=== PATIENT | female | born 1965 | race Caucasian/White ===

== ENCOUNTER 2020-12-19 16:33 | Emergency (ER) | payer BC, SELFPAY ==
--- NOTE | ~2020-12-19 | CT_ITS ---
EXAMINATION: CT abdomen pelvis w con DATE: 12/19/2020 20:08 INDICATION: Left lower quadrant pain TECHNIQUE: Computed tomography (CT) of the abdomen and pelvis was performed with 100 cc Omnipaque 350 intravenous contrast. The dose-length product was 274.02 mGy-cm. Automated exposure control and iter ative reconstruction technique were employed. COMPARISON: CT dated 10/21/2018. FINDINGS: Lung bases unremarkable. No significant pleural or pericardial effusion. Heart size is norm al. No significant vascular abnormality. No lymphadenopathy. The liver, spleen, pancreas, adrenal glands and kidneys are unremarkable no abnormal pelvic masses or fluid collections. There is surgical anastomosis of the small bowel in the right abdomen. Gallbladde r is present. Mildly elevated left diaphragm. No free air or free fluid. No evidence for diverticulit is. Mild lumbar spondylosis. There is deformity of the pelvis bilaterally, likely related to remote t rauma. IMPRESSION: 1. No acute abdominal abnormality. Reviewed, dictated and finalized at location A. GRADER
[2020-12-19 17:14] VITALS: BP 110/88; PULSE 78; RESP 18; TEMP 35.8; O2SAT 98
[2020-12-19 17:28] LABS: Basophils Percent Auto 0.4 % (0.2-1.2); Eosinophils Absolute Auto 0.1 K/mm3 (0-0.3); Eosinophils Percent Auto 1.1 % (0-4.4); Hematocrit 42.1 % (37.0-47.0); Hemoglobin 14.2 g/dL (12.0-15.0); Immature Granulocyte Absolute 0.02 K/mm3 (0.00-0.031); Immature Granulocyte Percent A 0.3 % (0-0.5); Lymphocytes Percent Auto 34.3 % (18.3-44.2); Mean Corpuscular HGB Conc 33.7 g/dl (32-36); Mean Corpuscular Hemoglobin 29.5 pg (26-34); Mean Corpuscular Volume 87.3 fl (80-100); Mean Platelet Volume 10.7 fl (7.4-10.4); Monocytes Absolute Auto 0.4 K/mm3 (0.1-0.6); Monocytes Percent Auto 5.1 % (2.6-8.5); Neutrophils Absolute Auto 4.1 K/mm3 (1.3-6.7); Neutrophils Percent Auto 58.8 % (45.5-73.1); Platelet Count Result 245 k/mm3 (150-375); Red Blood Count 4.82 M/mm3 (4.2-5.4); Red Cell Distribution Width 12.9 % (11.5-14.5)
[2020-12-19 17:35] LABS: Add Urine Microscopic? YES; Appearance Urine Clear (Clear); Bacteria Urine Trace /hpf; Bilirubin Urine Negative (Negative); Blood Urine 2+ (Negative); Color Urine Yellow (Yellow); Glucose Urine UA Negative (Negative); Ketones Urine Negative (Negative); Leukocyte Esterase Ur Negative LEU/UL (Negative); Mucus Urine Moderate /lpf; Nitrate Urine Negative (Negative); Protein Urine Negative (Negative); Specific Grav Ur 1.026 (1.001-1.035); Squamous Epithelial Cell Urine Many /hpf (Few); Urobilinogen Urine Negative mg/dL (<2.0)
[2020-12-19 17:41] LABS: Alanine Aminotransferase 17 U/L (4-35); Albumin Level 4.5 g/dL (3.5-5.1); Alkaline Phosphatase 79 U/L (38-126); Anion Gap 5 mmol/L (8-16); Aspartate Amino Transferase 26 U/L (14-36); Bilirubin,Total 0.4 mg/dL (0.2-1.3); Blood Urea Nitrogen 17 mg/dL (7-17); Calcium 9.8 mg/dL (8.4-10.2); Carbon Dioxide 31 mmol/L (22-30); Chloride 103 mmol/L (98-107); Estimated CRCL calculation 62 ml/min; Estimated Glomerular Filt Rate > 60; Glucose 107 mg/dL (65-105); Lipase 44 U/L (23-300); Potassium 4.2 mmol/L (3.4-5.0); Sodium 139 mmol/L (137-145)
--- NOTE | 2020-12-19 19:23 | ED.ABDPAIN ---
HPI - Abdominal Pain General Chief Complaint: Abdominal Pain Stated Complaint: abd pain Time Seen by Provider: 12/19/20 19:14 Source: patient Mode of arrival: ambulatory Limitations: no limitations History of Present Illness HPI narrative: Patient is a 54-year-old female complaining of left lower quadrant pain radiating to her whole abdomen, 5 out of 10, dull, accompanied by nausea started 2 days ago. Patient denies any chest pain, shortness of breath, vomiting, diarrhea, fever, chills or urinary symptoms. Related Data Allergies Allergy/AdvReac Type Severity Reaction Status Date / Time Rajxaol-Isi-Phm Reductase Allergy Elevated CK Verified 12/19/20 17:17 Inhibitor Review of Systems Review of Systems: All systems reviewed & are unremarkable except as noted in HPI and below Constitutional: Constitutional: Denies body ache(s), Denies chills, Denies excessive sweating, Denies fatigue, Denies fever(s), Denies headache(s), Denies lethargy, Denies malaise, Denies weakness and Denies weight loss Eyes: Eyes: Denies blurry vision, Denies change in vision and Denies loss of vision ENT: Denies dizziness, Denies ear discharge, Denies headache(s), Denies lip swelling, Denies epistaxis, Denies nasal congestion, Denies neck pain, Denies throat swelling and Denies tongue swelling Cardiovascular: Cardiovascular: Denies chest pain, Denies chest pain at rest, Denies chest pain with activity, Denies diaphoresis, Denies rapid heart rate, Denies edema, Denies irregular heart rhythm, Denies lightheadedness, Denies palpitations, Denies dyspnea and Denies dyspnea on exertion Respiratory: Respiratory: Denies chest congestion, Denies cough, Denies hemoptysis, Denies dyspnea and Denies dyspnea on exertion Gastrointestinal: Gastrointestinal: Denies melena, Denies hematochezia, Denies diarrhea, Denies vomiting and Denies hematemesis Musculoskeletal: Musculoskeletal: Denies abnormal gait, Denies deformity, Denies joint swelling, Denies limited range of motion, Denies neck pain and Denies numbness Neurologic: Denies Abnormal speech present, Denies abnormal gait, Denies confusion, Denies dizziness, Denies headache(s), Denies focal weakness, Denies loss of vision, Denies numbness, Denies Other visual disturbances, Denies Sensory deficit (Neuro) and Denies weakness Psychiatric: Psychiatric: Denies confusion, Denies depression, Denies auditory hallucinations, Denies homicidal ideation and Denies suicidal ideation Endocrine: Endocrine: Denies cold intolerance, Denies excessive sweating, Denies fatigue, Denies heat intolerance and Denies palpitations Hematologic/Lymphatic: Hematologic/Lymphatic: Denies easy bleeding and Denies easy bruising Allergic/Immunologic: Allergic/Immunologic: Denies lip swelling, Denies throat swelling and Denies tongue swelling PMFSH Past Medical History Medical History BMI 24.0-24.9, adult Tobacco abuse Family History Family History Father Cancer Mother Borderline hyperlipidemia Hypertension Sibling Fibromyalgia Cerebral palsy Other Family history of lung cancer Social History Social History (Updated 12/19/20 @ 13:59 by Ely Loya [facility]) Smoking packs per day: 0.5 Smoking cigarettes per day: 10.0 Years smoked: 25 Smoking pack-years: 12.50 Smoking status: Current every day smoker Tobacco type: cigarettes Alcohol intake: current Substance use: never Substance use type: does not use Additional occupation/education comments: bank boss Gender identity (if verbalized by the patient): Female Exam Const: General: cooperative, healthy appearing, comfortable, no acute distress, well developed, alert and awake; No confusion Orientation/consciousness: oriented to person, oriented to place, oriented to time, patient oriented x3 and No confusion Limitations: n
[2020-12-19] MEDS: SODIUM CHLORIDE 0.9% IV 1,000 ML 999 ML IV CONT (19:42)
[2020-12-19 20:46] VITALS: BP 134/86; PULSE 81; RESP 16; TEMP 36.8; O2SAT 97
== END 2020-12-19 20:47 | disposition home or self-care (01) ==
PROVIDERS: Emergency Medicine; Emergency Provider Emergency Medicine; PCP Nurse Practitioner Family
DX: N30.01 Acute cystitis with hematuria (principal); F17.210 Nicotine dependence, cigarettes, uncomplicated
CPT/HCPCS: 36415; 74177; 80053; 81001; 83690; 85025; 96360; 99284; J7030; Q9967

== ENCOUNTER 2021-05-03 08:49 | Inpatient (IN) | payer BC, SELFPAY ==
--- NOTE | ~2021-05-03 | CT_ITS ---
EXAMINATION: CT orbit BI w con DATE: 05/03/2021 10:34 INDICATION: Orbital cellulitis, left eye swelling TECHNIQUE: Computed tomography (CT) of the facial bones and maxillofacial region was performed 75 cc of Omnipaque 350 intravenous contrast. The dose-length product (DLP) was 188.43 mGy-cm. Automated exp osure control and iterative reconstruction technique were employed. COMPARISON: None. FINDINGS: There is left periorbital and preseptal soft tissue swelling. No abscess is identified. The globes are intact. No acute abnormality of the facial bones is identified. IMPRESSION: 1. Left periorbital cellulitis without abscess. Reviewed, dictated and finalized at location A.
[2021-05-03 09:01] VITALS: BP 163/90; PULSE 80; RESP 14; TEMP 36.5; O2SAT 99
[2021-05-03] MEDS: HYDROcodone/acetaminophen (*CRX) 5-325 MG TABLET 1 TAB PO ×2 (09:48→16:25)
[2021-05-03 10:09] LABS: Anion Gap 7 mmol/L (8-16); Blood Urea Nitrogen 11 mg/dL (7-17); Calcium 9.4 mg/dL (8.4-10.2); Carbon Dioxide 29 mmol/L (22-30); Chloride 104 mmol/L (98-107); Estimated CRCL calculation 61 ml/min; Estimated Glomerular Filt Rate > 60; Glucose 112 mg/dL (65-105); Potassium 4.1 mmol/L (3.4-5.0); Sodium 140 mmol/L (137-145)
[2021-05-03 10:29] LABS: Basophils Absolute Auto 0.1 K/mm3 (0.0-0.1); Basophils Percent Auto 0.8 % (0.2-1.2); Eosinophils Percent Auto 0.5 % (0-4.4); Hematocrit 43.8 % (37.0-47.0); Hemoglobin 14.4 g/dL (12.0-15.0); Immature Granulocyte Absolute 0.03 K/mm3 (0.00-0.031); Immature Granulocyte Percent A 0.4 % (0-0.5); Lymphocytes Absolute Auto 1.66 K/mm3 (0.9-3.2); Mean Corpuscular HGB Conc 32.9 g/dl (32-36); Mean Corpuscular Hemoglobin 29.5 pg (26-34); Mean Corpuscular Volume 89.8 fl (80-100); Mean Platelet Volume 11.2 fl (7.4-10.4); Monocytes Absolute Auto 0.5 K/mm3 (0.1-0.6); Monocytes Percent Auto 5.9 % (2.6-8.5); Neutrophils Absolute Auto 5.6 K/mm3 (1.3-6.7); Neutrophils Percent Auto 71.4 % (45.5-73.1); Platelet Count Result 248 k/mm3 (150-375); Red Blood Count 4.88 M/mm3 (4.2-5.4); Red Cell Distribution Width 12.7 % (11.5-14.5); White Blood Count 7.9 K/mm3 (4.5-10.0)
--- NOTE | 2021-05-03 11:48 | ED.GENADULT ---
HPI - General Adult General Chief complaint: Eye Problems Stated complaint: swollen left eye Time Seen by Provider: 05/03/21 08:53 Source: patient Mode of arrival: ambulatory Limitations: no limitations History of Present Illness HPI narrative: 55-year-old with a history of hyperlipidemia, GERD here with complaints of left eye pain and swelling. Patient states that she is seen in urgent care was given oral antibiotic and eyedrops. However since this morning there is increasing swelling. She denies any fever or chills. Able to see out of the eye clearly without any problem. Onset (ago): day(s) (2) Location: eyes (Left) Severity: moderate Quality: aching Pain Consistency: constant Relieving factors: none Exacerbating factors: none Associated symptoms: denies other symptoms Related Data Home Medications Medication Instructions Recorded Confirmed sucralfate 1 gram tablet 1 g PO Q6H tablet 02/12/21 05/01/21 Allergies Allergy/AdvReac Type Severity Reaction Status Date / Time Essafdj-Fqo-Egi Reductase Allergy Elevated CK Verified 05/01/21 10:26 Inhibitor Review of Systems Review of Systems: All systems reviewed & are unremarkable except as noted in HPI and below Constitutional: Constitutional: Reports no additional constitutional complaints Eyes: Eyes: Reports as per HPI Cardiovascular: Cardiovascular: Reports no additional cardiovascular complaints Respiratory: Respiratory: Reports no additional respiratory complaints Gastrointestinal: Gastrointestinal: Reports no additional gastrointestinal complaints Musculoskeletal: Musculoskeletal: Reports no additional musculoskeletal complaints Integumentary/Breasts: Skin/Breast: Reports as per HPI Neurologic: Reports system reviewed and no additional complaints, except as documented [facility] Past Medical History Medical History Abdominal pain BMI 24.0-24.9, adult BMI 24.0-24.9, adult COVID-19 Stomach cramps Tobacco abuse Surgical History Surgical History H/O: hysterectomy Family History Family History Father Cancer Mother Borderline hyperlipidemia Hypertension Sibling Fibromyalgia Cerebral palsy Other Family history of lung cancer Social History Social History Smoking packs per day: 0.5 Smoking cigarettes per day: 10.0 Years smoked: 25 Smoking pack-years: 12.50 Tobacco type: cigarettes Second hand tobacco smoke exposure: No Alcohol intake: current Substance use: never Substance use type: does not use 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 HEAD: Normocephalic, atraumatic. EYES: PERRLA and EOMI.Left EyeLif is swollen is able to open the eye Conjunctiva is tania , no Drainage. . NECK: Supple. CHEST: Clear to auscultation. No respiratory distress. HEART: Regular rate and rhythm. No murmur heard. Normal peripheral pulses. ABDOMEN: Soft, nontender, nondistended, normal active bowel sounds. EXTREMITIES: Normal range of motion. No edema. SKIN: Warm, dry, no rash. NEURO: No focal deficits. Alert and oriented x3. PSYCH: Normal mood and affect. Course Course Emergency Course: Inform patient about her lab work, and CT findings. We will admit her to hospital for IV antibiotics.Pt agreed. Vital Signs Vital signs: Vital Signs Temperature 36.5 C 05/03/21 09:01 Pulse Rate 80 05/03/21 09:01 Respiratory Rate 14 05/03/21 09:01 Blood Pressure 163/90 H 05/03/21 09:01 Pulse Oximetry 99 05/03/21 09:01 Temperature 36.5 C 05/03/21 09:01 Pulse Rate 80 05/03/21 09:01 Respiratory Rate 14 05/03/21 0
[2021-05-03 12:05] VITALS: BP 151/84; PULSE 84; RESP 16; O2SAT 97
--- NOTE | 2021-05-03 13:00 | ADMGEN ---
This patient, Yanet Stevens, was admitted to Medical Room 247-. Patient/family oriented to hospital policies and general routines including ID bracelet, bed and alarms, visiting hours, pain management, procedures, bathroom and other care routines, personal items, smoking policy, room service/diet, and visiting hours. Information on how to activate the Rapid Response Team has been discussed. Patient/Family are encouraged to report perceived risks to care and to ask questions if they do not understand what they are told or what they should do.
[2021-05-03 14:00] VITALS: BP 145/75; PULSE 70; RESP 18; TEMP 36.5; O2SAT 100
[2021-05-03] MEDS: SODIUM CHLORIDE 0.9% IV 1,000 ML 125 ML IV CONT ×2 (15:20→22:02)
--- NOTE | 2021-05-03 15:33 | PM.IMHP ---
H&P: HPI History of Present Illness Date/Time: 05/03/21 15:33 this is a 55-year-old female patient who stated that she felt a discomfort in her left eye this past Wednesday. She said that she rubbed her eye and felt that maybe something scratched her eye. Her eye feel irritated as if there was something in her eye. She does not wear contacts. The left eye continue to get worse for the next 2 days. So on she went to her primary care doctor's office because her left eye lid was swollen and she had some thick greenish drainage. Patient was given eye drops but were difficult to use because they were burning her I and she needed to instill it every 4 hours. She was doing cold soaks the left eye. The patient was also placed on Augmentin be sides the bleth 10. The patient took Motrin at home and help some. She was doing cold soaks as well. Orbit CT was read as left periorbital cellulitis without abscess. The patient was started on Ancef for cellulitis and vancomycin was added for periorbital cellulitis. The patient stated she was given [place] in the emergency room and that seemed to help the discomfort. The patient is being admitted to inpatient services on the date of service of 05/03/2021 Chief Complaint: Periorbital cellulitis left eye Review of Systems Review of Systems: All systems reviewed & are unremarkable except as noted in HPI and below Constitutional: Constitutional: Reports as per HPI and Reports no additional constitutional complaints Eyes: Eyes: Reports as per HPI and Reports no additional eye complaints ENT: Reports system reviewed and no additional complaints, except as documented and Reports Normal hearing present Cardiovascular: Cardiovascular: Reports no additional cardiovascular complaints Respiratory: Respiratory: Reports no additional respiratory complaints and Reports no additional respiratory complaints Gastrointestinal: Gastrointestinal: Reports as per HPI and Reports no additional gastrointestinal complaints Musculoskeletal: Musculoskeletal: Reports no additional musculoskeletal complaints Integumentary/Breasts: Skin/Breast: Reports system reviewed and no additional complaints, except as docu and Reports as per HPI Neurologic: Reports system reviewed and no additional complaints, except as documented, Reports as per HPI and Reports Normal hearing present Psychiatric: Psychiatric: Reports no additional psychiatric complaints and Reports as per HPI Endocrine: Endocrine: Reports no additional endocrine complaints Hematologic/Lymphatic: Hematologic/Lymphatic: Reports no additional hematologic/lymphatic complaints Allergic/Immunologic: Allergic/Immunologic: Reports no additional allergic/immunologic complaints PMFSH Past Medical History Medical History (Updated 05/03/21 @ 16:08 by Yanet Boyce NP) Abdominal pain Anxiety BMI 24.0-24.9, adult BMI 24.0-24.9, adult Chronic GERD COVID-19 Epigastric abdominal pain Epigastric pain Eustachian tube disorder GERD (gastroesophageal reflux disease) Routine gynecological examination Stomach cramps Tobacco abuse Surgical History Surgical History (Updated 05/03/21 @ 15:55 by Yanet Boyce NP) H/O shoulder surgery H/O: hysterectomy left Family History Family History Father Cancer Mother Borderline hyperlipidemia Hypertension Sibling Fibromyalgia Cerebral palsy Son Genetic disorder Other Family history of lung cancer Social History Social History (Updated 05/03/21 @ 15:57 by Yanet Boyce NP) Social History: The patient lives with her his durable power of disability attorney for healthcare. The patient is a full code. The patient continues to smoke half a pack a cigarettes a day. She had 2 children but 1 son from a rare genetic disorder. Patient occasionally uses alcohol on weekends. She does not use any alcohol marijuana or illicit d
[2021-05-03 18:00] VITALS: BP 100/68; PULSE 69; RESP 18; TEMP 36.8; O2SAT 97
[2021-05-03 20:43] VITALS: BP 117/78; PULSE 79; RESP 18; TEMP 36.4; O2SAT 96
[2021-05-03] MEDS: POLYMYXIN/TRIMETHOPRIM OPHTH 10 ML DROPS 1 DROP EACH EYE (22:03)
[2021-05-04] VITALS: BP 139/87; PULSE 89; RESP 14; TEMP 36.6; O2SAT 93
[2021-05-04 05:26] LABS: Basophils Percent Auto 0.7 % (0.2-1.2); Eosinophils Absolute Auto 0.1 K/mm3 (0-0.3); Hematocrit 40.2 % (37.0-47.0); Hemoglobin 12.8 g/dL (12.0-15.0); Immature Granulocyte Absolute 0.03 K/mm3 (0.00-0.031); Immature Granulocyte Percent A 0.5 % (0-0.5); Lymphocytes Absolute Auto 2.04 K/mm3 (0.9-3.2); Lymphocytes Percent Auto 36.4 % (18.3-44.2); Mean Corpuscular HGB Conc 31.8 g/dl (32-36); Mean Corpuscular Hemoglobin 29.6 pg (26-34); Mean Corpuscular Volume 92.8 fl (80-100); Mean Platelet Volume 11.1 fl (7.4-10.4); Monocytes Absolute Auto 0.4 K/mm3 (0.1-0.6); Monocytes Percent Auto 7.3 % (2.6-8.5); Neutrophils Percent Auto 53.1 % (45.5-73.1); Platelet Count Result 219 k/mm3 (150-375); Red Blood Count 4.33 M/mm3 (4.2-5.4); Red Cell Distribution Width 12.7 % (11.5-14.5); White Blood Count 5.6 K/mm3 (4.5-10.0)
[2021-05-04] MEDS: SODIUM CHLORIDE 0.9% IV 1,000 ML 125 ML IV CONT (05:31)
[2021-05-04 05:32] VITALS: BP 124/72; PULSE 65; RESP 16; TEMP 36.4; O2SAT 92
[2021-05-04 05:38] LABS: Anion Gap 5 mmol/L (8-16); Blood Urea Nitrogen 12 mg/dL (7-17); Calcium 8.8 mg/dL (8.4-10.2); Carbon Dioxide 30 mmol/L (22-30); Chloride 106 mmol/L (98-107); Estimated CRCL calculation 54 ml/min; Estimated Glomerular Filt Rate > 60; Glucose 93 mg/dL (65-105); Potassium 4.6 mmol/L (3.4-5.0); Sodium 141 mmol/L (137-145)
[2021-05-04] MEDS: ENOXAPARIN 40 MG/0.4 ML SYRINGE SUB-Q (09:17)
[2021-05-04] MEDS: POLYMYXIN/TRIMETHOPRIM OPHTH 10 ML DROPS 1 DROP EACH EYE ×2 (09:17→20:11)
[2021-05-04] MEDS: ACETAMINOPHEN 325 MG TABLET 650 MG PO (09:27)
--- NOTE | 2021-05-04 10:37 | PM.IMPN ---
Progress Note: A&P Assessment and Plan (1) Periorbital cellulitis of left eye: Code(s): L03.213 - Periorbital cellulitis Status: Acute Assessment and Plan: Swelling and redness noted to left eye Complaints of blurred vision CT findings Left periorbital cellulitis without abscess. Cefazolin 1gm Q8hr Vanc 1000 Q18 Continue with Poly/trim 1gtt each eye. Lambert 1tab PO Q4hr, Torodol 30mg IV once for pain (2) Anxiety: Code(s): F41.9 - Anxiety disorder, unspecified Status: Chronic Assessment and Plan: Continue with citalopram 10mg PO HS (3) Hyperlipidemia: Qualifiers: Hyperlipidemia type: mixed hyperlipidemia Qualified Code(s): E78.2 - Mixed hyperlipidemia Code(s): E78.5 - Hyperlipidemia, unspecified Status: Acute Assessment and Plan: Continue with Zetia 10mg PO HS (4) Tobacco abuse: Code(s): Z72.0 - Tobacco use Status: Acute Assessment and Plan: Smoke cessation education Smoking patch ordered PRN (5) Chronic GERD: Code(s): K21.9 - Gastro-esophageal reflux disease without esophagitis Status: Chronic Assessment and Plan: Continue with crafate 1gm PO Q6hr PRN Time Spent With Patient Time with patient: 25 - 35 minutes Subjective Date/time seen: 05/04/21 0940 Interval history: Patient is a 55 year old female with a past medical history of COVID, GERD, Allergies, and tobacco use that presented to the ED with complaints of eye pain and swelling. Patient stated this started on Wednesday of last week when she noticed pain, then on she stated that the swelling started. And on her eye was huge. She stated that she went to her primary that gave her some eye drops, and amoxicillin. Which she said that she did not get much relief from that and she was noticing some green drainage. She said today that she just feels really stuffy in her head and that her eye is really hurting. She stated that there is drainage still but it is clear and sticky and that she is having drainage from the other eye as well. She did try some motrin at home which she stated she was able to get some relief. Upon examination she is severely swollen and can barely open her eye. She also stated that she is having some blurred vision in the eye to and she can see better if she covers that eye. She also stated that she has really bad allergies. She denies any other symptoms, chest pain, shortness of breath, nausea, vomiting, abdominal pain, numbness tingling, loss of appetite, dizziness, lightheadedness, fall or syncope. Review of Systems Review of Systems: All systems reviewed & are unremarkable except as noted in HPI and below Exam Const: General: cooperative, healthy appearing, no acute distress, well developed, alert and awake Nutritional Appearance: well nourished Orientation/consciousness: patient oriented x3 Limitations: no limitations HENMT: Head: normal to inspection Ears: hearing grossly normal bilaterally General nose exam: Normal external nose present Mouth: Yes Normal oral and palatal mucosa present, Yes lip normal and Yes tongue normal Teeth and gingiva: abnormal tooth and associated gingiva and poor dentition Eyes: General: dysmorphic (left eye is swollen shut) Alignment and Position: alignment normal Periorbital: periorbital findings abnormal left periorbital swelling, periorbital tenderness and periorbital erythema Eyelids: eyelid abnormality left upper eyelid erythema, swelling and tenderness and left lower eyelid erythema, swelling and tenderness Pupils: Equal, round and reactive pupils present EOM: EOMs intact bilaterally Neck: Neck: normal visual inspection, full ROM, trachea midline and supple Chest: Chest palpation & inspection: normal inspection of the chest Resp: Effort & Inspection: normal respiratory effort and able to speak in complete sentences Auscult
[2021-05-04] MEDS: KETOROLAC 30 MG/ML VIAL (*BKC) IV PUSH ×2 (12:23→18:33)
[2021-05-04] MEDS: LORATADINE 10 MG TABLET PO (12:25)
[2021-05-04 14:00] VITALS: BP 112/73; PULSE 65; RESP 18; TEMP 36.1; O2SAT 100
[2021-05-04] MEDS: EZETIMIBE 10 MG TABLET PO (20:11)
[2021-05-04] MEDS: CITALOPRAM HYDROBROMIDE 10 MG TABLET PO (20:11)
[2021-05-04 22:00] VITALS: BP 117/71; PULSE 68; RESP 18; TEMP 36.1; O2SAT 97
[2021-05-05] VITALS: BP 120/68; PULSE 62; RESP 18; TEMP 36.4; O2SAT 97
[2021-05-05 04:00] VITALS: BP 125/69; PULSE 62; RESP 20; TEMP 36.1; O2SAT 98
[2021-05-05 05:28] LABS: Hematocrit 37.9 % (37.0-47.0); Hemoglobin 12.8 g/dL (12.0-15.0); Mean Corpuscular HGB Conc 33.8 g/dl (32-36); Mean Corpuscular Hemoglobin 29.8 pg (26-34); Mean Corpuscular Volume 88.1 fl (80-100); Platelet Count Result 229 k/mm3 (150-375); Red Cell Distribution Width 12.2 % (11.5-14.5)
[2021-05-05 05:49] LABS: Alanine Aminotransferase 13 U/L (4-35); Albumin Level 3.8 g/dL (3.5-5.1); Alkaline Phosphatase 69 U/L (38-126); Anion Gap 5 mmol/L (8-16); Aspartate Amino Transferase 28 U/L (14-36); Bilirubin,Total 0.2 mg/dL (0.2-1.3); Blood Urea Nitrogen 14 mg/dL (7-17); Calcium 9.2 mg/dL (8.4-10.2); Carbon Dioxide 31 mmol/L (22-30); Chloride 104 mmol/L (98-107); Estimated CRCL calculation 54 ml/min; Estimated Glomerular Filt Rate > 60; Glucose 98 mg/dL (65-105); Potassium 4.4 mmol/L (3.4-5.0); Sodium 140 mmol/L (137-145)
[2021-05-05] MEDS: POLYMYXIN/TRIMETHOPRIM OPHTH 10 ML DROPS 1 DROP EACH EYE (08:09)
[2021-05-05] MEDS: LORATADINE 10 MG TABLET PO (08:09)
--- NOTE | 2021-05-05 09:19 | PM.DS ---
DS: Admitting Diagnosis Admitting Diagnosis Admitting Diagnosis: Periorbital cellulitis DS: Discharge Diagnosis Discharge Diagnosis (1) Periorbital cellulitis of left eye: Code(s): L03.213 - Periorbital cellulitis Status: Acute Assessment and Plan: Swelling and redness noted to left eye Complaints of blurred vision CT findings Left periorbital cellulitis without abscess. Cefazolin 1gm Q8hr Vanc 1000 Q18 Continue with Poly/trim 1gtt each eye. [place] 1tab PO Q4hr, Torodol 30mg IV once for pain (2) Anxiety: Code(s): F41.9 - Anxiety disorder, unspecified Status: Chronic Assessment and Plan: Continue with citalopram 10mg PO HS (3) Hyperlipidemia: Qualifiers: Hyperlipidemia type: mixed hyperlipidemia Qualified Code(s): E78.2 - Mixed hyperlipidemia Code(s): E78.5 - Hyperlipidemia, unspecified Status: Acute Assessment and Plan: Continue with Zetia 10mg PO HS (4) Tobacco abuse: Code(s): Z72.0 - Tobacco use Status: Acute Assessment and Plan: Smoke cessation education Smoking patch ordered PRN (5) Chronic GERD: Code(s): K21.9 - Gastro-esophageal reflux disease without esophagitis Status: Chronic Assessment and Plan: Continue with crafate 1gm PO Q6hr PRN DS: Summary Hospital Course Hospital Course: Patient is a 55 year old female with a past medical history of COVID, GERD, Allergies, and tobacco use that presented to the ED with complaints of eye pain and swelling. Patient stated this started on Wednesday of last week when she noticed pain, then on she stated that the swelling started. And on her eye was huge. She stated that she went to her primary that gave her some eye drops, and amoxicillin. Which she said that she did not get much relief from that and she was noticing some green drainage. Since she has been in the hospital, she has been getting IV antibiotics, and toradol for swelling and pain. Patient did get some narcotics however she stated that the pain was better, but it made her very tired and lethargic. Today the swelling is better and she is able to open her eye. She stated that the pain is minimal and she is not having any blurred or abnormal vision. Patient has denied and still denies any other complaints through this admission. Patient denies chest pain, shortness of breath, abdominal pain, nausea, vomiting, numbness and tingling, dizziness, lightheadedness, or syncope falls. I did instruct patient about call primary about referral to farm technician for further care if this does not get any better. Status at Discharge Functional status at discharge: independent ambulation Overall status at discharge: patient is progressing back to baseline Time Spent with Patient Time attestation: Total time spent providing and/or coordinating discharge services: Time spent: Less than 30 minutes Exam Const: General: cooperative, healthy appearing, comfortable, no acute distress, well developed, alert, awake and Physically active Nutritional Appearance: average body habitus and well nourished Orientation/consciousness: oriented to person, oriented to place, oriented to time and patient oriented x3 Limitations: no limitations HENMT: Head: normal to inspection, No palpable skull fracture present, normocephalic and atraumatic Ears: hearing grossly normal bilaterally and external ears normal General nose exam: Normal external nose present, Normal nares present and No nasal polyps present Mouth: Yes Normal oral and palatal mucosa present, Yes lip normal and Yes tongue normal Teeth and gingiva: abnormal tooth and associated gingiva and poor dentition Eyes: General: dysmorphic (left eye is swollen slightly) Alignment and Position: alignment normal Periorbital: periorbital findings normal and periorbital findings abnormal left periorbital swelling, periorbital tend
[2021-05-05 10:00] VITALS: BP 120/76; PULSE 74; RESP 16; TEMP 36.2; O2SAT 100
== END 2021-05-05 10:59 | disposition home or self-care (01) | DRG 603 ==
LOC: ANHED 12:21 → ANH2MED 16:56
PROVIDERS: Nurse Practitioner; Admitting Provider Family Medicine; Emergency Provider Family Medicine; PCP Family Medicine; Visit Provider Internal Medicine
DX: L03.213 Periorbital cellulitis (principal); F41.9 Anxiety disorder, unspecified; K21.9 Gastro-esophageal reflux disease without esophagitis; E78.2 Mixed hyperlipidemia; F17.210 Nicotine dependence, cigarettes, uncomplicated; Z79.899 Other long term (current) drug therapy; Z86.16 Personal history of COVID-19
CPT/HCPCS: 36415; 70481; 80048; 80053; 85025; 85027; 99285; A9270; J0690; J1650; J1885; J3370; J7030; Q9967

== ENCOUNTER 2022-03-12 09:01 | Outpatient (CLI) | payer BC, SELFPAY ==
--- NOTE | ~2022-03-12 | CT_ITS ---
EXAMINATION: CT abdomen pelvis w con DATE: 03/12/2022 09:40 INDICATION: Mid abdominal pain. TECHNIQUE: Computed tomography (CT) of the abdomen and pelvis was performed with 100 mL Omnipaque 350 intravenous contrast. Automated exposure control and iterative reconstruction technique were employe d. The dose-length product was 337.55 mGy-cm. COMPARISON: CT abdomen and pelvis 12/19/2020 FINDINGS: The visualized portions of the lung bases show minimal atelectasis. No pleural effusion. Th e heart size is normal. No pericardial effusion. There is a 4 mm cyst in the liver. The gallbladder, spleen, pancreas, adrenal glands, and kidneys are normal. There are no dilated loops of bowel. The ap pendix is not visualized. There are changes of hysterectomy and bilateral oophorectomy. There is an a nastomosis in the ileum. There are no pathologically enlarged lymph nodes. There is no free intraperi toneal fluid. There is moderate lumbar spondylosis. IMPRESSION: 1. No etiology for the patient's symptoms. Reviewed, dictated and finalized at location A.
[2022-03-12 10:20] LABS: Basophils Percent Auto 0.7 % (0.2-1.2); Eosinophils Percent Auto 0.5 % (0-4.4); Hematocrit 41.6 % (37.0-47.0); Hemoglobin 13.5 g/dL (12.0-15.0); Immature Granulocyte Absolute 0.03 K/mm3 (0.00-0.031); Immature Granulocyte Percent A 0.5 % (0-0.5); Lymphocytes Absolute Auto 1.86 K/mm3 (0.9-3.2); Lymphocytes Percent Auto 30.5 % (18.3-44.2); Mean Corpuscular HGB Conc 32.5 g/dl (32-36); Mean Corpuscular Hemoglobin 29.5 pg (26-34); Mean Platelet Volume 10.8 fl (7.4-10.4); Monocytes Absolute Auto 0.4 K/mm3 (0.1-0.6); Monocytes Percent Auto 5.7 % (2.6-8.5); Neutrophils Absolute Auto 3.8 K/mm3 (1.3-6.7); Neutrophils Percent Auto 62.1 % (45.5-73.1); Platelet Count Result 264 k/mm3 (150-375); Red Blood Count 4.57 M/mm3 (4.2-5.4); Red Cell Distribution Width 12.9 % (11.5-14.5); White Blood Count 6.1 K/mm3 (4.5-10.0)
[2022-03-12 11:07] LABS: Vitamin D 25 Hydroxy 44.7 ng/mL
[2022-03-12 16:54] LABS: Alanine Aminotransferase 17 U/L (4-35); Alkaline Phosphatase 73 U/L (38-126); Amylase 56 U/L (30-110); Anion Gap 6 mmol/L (8-16); Aspartate Amino Transferase 25 U/L (14-36); Bilirubin,Total 0.5 mg/dL (0.2-1.3); Blood Urea Nitrogen 15 mg/dL (7-17); Calcium 8.7 mg/dL (8.4-10.2); Carbon Dioxide 28 mmol/L (22-30); Chloride 100 mmol/L (98-107); Estimated Glomerular Filt Rate > 60; Glucose 96 mg/dL (65-110); Lipase 36 U/L (23-300); Potassium 4.3 mmol/L (3.4-5.0); Sodium 134 mmol/L (137-145)
== END 2022-03-12 09:02 | disposition home or self-care (01) ==
PROVIDERS: Nurse Practitioner Family; PCP Family Medicine; Visit Provider Nurse Practitioner Family
DX: R10.9 Unspecified abdominal pain (principal); E55.9 Vitamin D deficiency, unspecified; K57.92 Diverticulitis of intestine, part unspecified, without perforation or abscess without bleeding; R10.12 Left upper quadrant pain; R10.31 Right lower quadrant pain; R10.32 Left lower quadrant pain
CPT/HCPCS: 36415; 74177; 80053; 82150; 82306; 83690; 85025; Q9967

== ENCOUNTER → 2022-05-02 10:51 | Outpatient (CLI) | payer BC, SELFPAY ==
--- NOTE | ~2022-05-02 | MM_ITS ---
EXAMINATION: MM screening agus BI w christiana HISTORY: Screening mammogram TECHNIQUE: Craniocaudal and mediolateral oblique 3-D tomosynthesis images were obtained and synthetic 2-D images were generated. CAD analysis was submitted and interpreted. COMPARISON: No prior mammogram is available for comparison at this institution. BREAST PARENCHYMAL COMPOSITION: There are scattered areas of fibroglandular density. FINDINGS: There are 2 circumscribed roughly 6 mm opacities suggestive of lymph nodes in the posterior mid to upper outer left breast with some microcalcifications. Left axillary lymph nodes with some calcifications are noted. Diagnostic left mammogram with magnification views is recommended. Benign appearing lymph node in the posterior outer mid right breast. IMPRESSION: 1. Calcifications within posterior mid to upper outer left lymph nodes and axillary nodes 2. Diagnostic left mammogram is recommended, with ultrasound if required 0 Reviewed, dictated and finalized at location A. IMPRESSION: 1. Calcifications within posterior mid to upper outer left lymph nodes and axil lalo nodes 2. Diagnostic left mammogram is recommended, with ultrasound if required 0
== END ==
PROVIDERS: PCP Nurse Practitioner Family; Visit Provider Nurse Practitioner Family
DX: Z12.31 Encounter for screening mammogram for malignant neoplasm of breast (principal); R92.8 Other abnormal and inconclusive findings on diagnostic imaging of breast
CPT/HCPCS: 77063; 77067

== ENCOUNTER 2022-06-04 00:33 | Day surgery (SDC) | payer BC, SELFPAY ==
[2022-05-22 10:56] VITALS: BMI 24.2
--- NOTE | 2022-06-04 08:26 | WPDANESEPPF ---
Anes - Initial Pre Proc Eval Procedure: Operation Date: 06/04/22 10:00 Proposed Procedures p Esophagogastroduodenoscopy - Gildardo Sarah MD Date/Time: 06/04/22 08:26 Surgeon: Gildardo Sarah MD Pre Op Diagnosis: GERD Patient Data Age: 56 Gender: F Height: 1.68 m Weight: 68 kg Allergies Allergy/AdvReac Type Severity Reaction Status Date / Time ezetimibe [From Zetia] AdvReac muscle Verified 05/22/22 10:54 aches Efrcaru-ILT-MaN Reductase AdvReac Elevated CK Verified 05/22/22 10:54 Inhibitor [Yhlgoun-Dto-Yxh Reductase Inhibitor] Home Medications Medication Instructions Recorded Confirmed Type sucralfate 1 gram tablet 1 g PO Q6H PRN Acid Reflux #90 tabs 12/22/21 05/22/22 Rx citalopram 10 mg tablet 10 mg PO HS #90 tabs 04/13/22 05/22/22 Rx ibuprofen 800 mg tablet 800 mg PO TID PRN pain and swellin 04/14/22 05/22/22 Rx #30 tabs omeprazole 40 mg capsule,delayed 40 mg PO DAILY PRN Indigestion 05/22/22 05/22/22 History release Patient hx anesthesia problems: none Family hx anesthesia problems: none Results Review: All pre-operative results and documents have been reviewed as part of the pre-operative evaluation. [facility] Past Medical History Medical History (Updated 05/04/22 @ 08:13 by Barb Decker NP) Abdominal pain Anxiety BMI 24.0-24.9, adult BMI 24.0-24.9, adult BMI 25.0-25.9,adult Chronic GERD COVID-19 Diverticulitis Epigastric abdominal pain Epigastric pain Eustachian tube disorder GERD (gastroesophageal reflux disease) LLQ pain LUQ pain RLQ abdominal pain Routine gynecological examination Stomach cramps Tobacco abuse Surgical History Surgical History H/O shoulder surgery H/O: hysterectomy left Family History Family History Father Cancer Mother Borderline hyperlipidemia Hypertension Sibling Fibromyalgia Cerebral palsy Son Genetic disorder Other Family history of lung cancer Social History Social History Social History: The patient lives with her his durable power of attorney lawyer for healthcare. The patient is a full code. The patient continues to smoke half a pack a cigarettes a day. She had 2 children but 1 son from a rare genetic disorder. Patient occasionally uses alcohol on weekends. She does not use any alcohol marijuana or illicit drugs. 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 Informed Consent: The patient's anesthetic plan and its attendant risks and benefits were discussed with the patient/family/POA. Questions were solicited and answers provided to the satisfaction of the patient/family/POA.
[2022-06-04 08:42] VITALS: BP 140/91; PULSE 79; RESP 18; TEMP 36.5; O2SAT 98; BMI 23.8
[2022-06-04] MEDS: LACTATED RINGERS 1,000 ML 150 ML IV CONT (08:51)
--- NOTE | 2022-06-04 09:17 | PM.HPGS ---
History of Present Illness History of Present Illness Consent: Risks, benefits, and alternatives have been discussed and questions answered. Patient agrees to proceed with procedure. Chief complaint: GERD Narrative: Yanet Stevens is a 56 year old female Who has been troubled by lower thoracic, upper abdominal discomfort for the past several months. She states that she has pain virtually every day. She tends to notice that when she wakes up. It can occasionally get worse after meal. She has different types of pains in different days. Often it is a bandlike discomfort across her lower thorax. It is uncomfortable often for her to wear a bra because of that discomfort, and it will at times make it feel like it is difficult for her to catch her breath. She also feels very bloated in the upper abdomen. This may get worse as the day goes on. 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 She notices that she gets full easily and has a very difficult time finishing a meal. She is taking sucralfate 4 times a day but not noticing any definite benefit from that. a CT scan of the abdomen done 2 months ago was unremarkable. Review of Systems Review of Systems: All systems reviewed & are unremarkable except as noted in HPI and below PMFSH Past Medical History Medical History Abdominal pain Anxiety BMI 24.0-24.9, adult BMI 24.0-24.9, adult BMI 25.0-25.9,adult Chronic GERD COVID-19 Diverticulitis Epigastric abdominal pain Epigastric pain Eustachian tube disorder GERD (gastroesophageal reflux disease) LLQ pain LUQ pain RLQ abdominal pain Routine gynecological examination Stomach cramps Tobacco abuse Surgical History Surgical History H/O shoulder surgery H/O: hysterectomy left Family History Family History Father Cancer Mother Borderline hyperlipidemia Hypertension Sibling Fibromyalgia Cerebral palsy Son Genetic disorder Other Family history of lung cancer Social History Social History Social History: The patient lives with her his durable power of trade mark attorney for healthcare. The patient is a full code. The patient continues to smoke half a pack a cigarettes a day. She had 2 children but 1 son from a rare genetic disorder. Patient occasionally uses alcohol on weekends. She does not use any alcohol marijuana or illicit drugs. 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 Gender identity (if verbalized by the patient): Female Spiritual care concerns: No Meds Home Medications and Allergies Home Medications Medication Instructions Recorded Confirmed Type sucralfate 1 gram tablet 1 g PO Q6H PRN Acid Reflux #90 tabs 12/22/21 05/22/22 Rx citalopram 10 mg tablet 10 mg PO HS #90 tabs 04/13/22 05/22/22 Rx ibuprofen 800 mg tablet 800 mg PO TID PRN pain and swellin 04/14/22 05/22/22 Rx #30 tabs omeprazole 40 mg capsule,delayed 40 mg PO DAILY PRN Indigestion 05/22/22 05/22/22 History release Allergies Allergy/AdvReac Type Severity Reaction Status Date / Time ezetimibe [From Zetia] AdvReac muscle Verified 05/22/22 10:54 aches Gwnhvry-IKL-CyN Reductase AdvReac Elevated CK Verified 05/22/22 10:54 Inhibitor [Habgutq-Kum-Dmv Reductase Inhibitor] Vital Sign
[2022-06-04 10:10] VITALS: BP 127/74; PULSE 80; RESP 20; O2SAT 99
[2022-06-04 10:20] VITALS: BP 117/84; PULSE 71; RESP 18; O2SAT 100
[2022-06-04 10:30] VITALS: BP 146/76; PULSE 68; RESP 20; O2SAT 100
== END 2022-06-04 10:35 | disposition home or self-care (01) ==
PROVIDERS: PCP Nurse Practitioner Family; Visit Provider Internal Medicine Gastroenterology
PROC: 0DJ08ZZ Inspection of Upper Intestinal Tract, Via Natural or Artificial Opening Endoscopic (ICD-10-PCS; CPT 43235; principal; 2022-06-04 10:00)
DX: K29.70 Gastritis, unspecified, without bleeding (principal); F17.210 Nicotine dependence, cigarettes, uncomplicated; F41.9 Anxiety disorder, unspecified
CPT/HCPCS: 43239; 87081; 88305; J2704; J7120

== ENCOUNTER 2022-08-19 07:57 | Outpatient (CLI) | payer BC, SELFPAY ==
--- NOTE | 2022-09-13 14:17 | WPDSLEEPSTUD ---
Sleep Study Date of Study: 08/19/22 Ordering Provider: Garrett Cuello MD Interpreting Physician: Roselia Nieves MD Sleep Study Type: Split Polysomnogram Height: 1.68 m Weight: 68.039 kg Body Mass Index: 24.2 Neck Circumference (inches): 14 [place]: 13 Reason for Sleep Study Hypersomnia Sleep History Yanet Stevens is a 56-year-old female with Fatigue. She never feels like she gets enough sleep. Others tell her she snores loudly. Her brother and sister both use CPAP. She rarely awakens from sleep feeling short of breath. She occasionally awakens at night with heartburn, belching or coughing. She constantly snores loudly enough that others complain about it she occasionally has trouble sleeping with a cold. She rarely wakes up gasping for breath at night. She rarely has breathing problems at night observed by others. She frequently sweats excessively at night. She does not notice her heart pounding or beating irregularly at night. She frequently falls asleep during the day. She does not fall asleep involuntarily. She does not fall asleep while driving. She does not have loss of muscle tone with strong emotion. She occasionally has daytime difficulties due to excessive sleepiness. She rarely feels paralyzed on waking or falling asleep. She occasionally has vivid dreamlike scenes upon awakening or falling asleep. She does not feel afraid to go to sleep. She occasionally has nightmares. She occasionally remembers her dreams. She constantly has racing thoughts. She occasionally feels sad, depressed or anxious. She rarely has muscular tension. She does not notice parts of her body jerking. She frequently kicks at night and frequently has crawling aching feelings in her legs. She occasionally has leg pain at night. She frequently has morning jaw pain and frequently grinds her teeth during sleep. She occasionally is bothered by pain during the day. She rarely is awakened by pain at night. She occasionally wakes up feeling stiff in the morning with sore achy muscles. She frequently wakes up with pain in the neck and spine. She has Hyperlipidemia, GERD on omeprazole and she takes citalopram for depression. She also has nasal allergies. Normal bedtime is 9:00 p.m. taking an hour to fall asleep waking twice at night to go to the bathroom, toss and turn. It takes her about 1/2 hour to return to sleep. She wakes the morning by noon. on weekends, she goes to bed later, 10:00 p.m. and wakes by 1:00 p.m.. She estimates getting 8 hours of sleep during 13 to 15 hours in bed. She takes naps on weekends. A short nap is not refreshing. She is usually drowsy for 2 hours after waking. She feels better in the afternoon compared to the morning. Habits: Tobacco half pack per day. Caffeine 18 oz of coffee and 1 can of soda per day. No alcohol or recreational drugs. [facility] Past Medical History Medical History Abdominal pain Anxiety BMI 24.0-24.9, adult BMI 24.0-24.9, adult BMI 25.0-25.9,adult Chronic GERD COVID-19 Diverticulitis Epigastric abdominal pain Epigastric pain Eustachian tube disorder GERD (gastroesophageal reflux disease) LLQ pain LUQ pain RLQ abdominal pain Routine gynecological examination Stomach cramps Tobacco abuse Surgical History Surgical History H/O shoulder surgery H/O: hysterectomy left Family History Family History Father Cancer Mother Borderline hyperlipidemia Hypertension Sibling Fibromyalgia Cerebral palsy Son Genetic disorder Other Family history of lung cancer Social History Social History Social History: The patient lives with her his durable power of deputy attorney general for healthcare. The patient is a full code. The
[2022-09-13 15:12] VITALS: BMI 24.2
== END 2022-08-20 05:47 | disposition home or self-care (01) ==
PROVIDERS: PCP Nurse Practitioner Family; Visit Provider Family Medicine
DX: G47.10 Hypersomnia, unspecified (principal); G47.33 Obstructive sleep apnea (adult) (pediatric); G25.81 Restless legs syndrome
CPT/HCPCS: 95810; 95811

== ENCOUNTER 2022-09-25 09:59 | Outpatient (CLI) | payer BC, SELFPAY ==
[2022-09-25 10:54] LABS: Iron 76 ug/dL (37-170)
[2022-09-25 10:56] LABS: Magnesium 2.1 mg/dL (1.6-2.3)
[2022-09-25 11:05] LABS: Percent Iron Saturation 17 % (20-50)
== END 2022-09-25 10:00 | disposition home or self-care (01) ==
LOC: ANHLAB 10:01
PROVIDERS: PCP Family Medicine; Visit Provider Nurse Practitioner Family
DX: G25.81 Restless legs syndrome (principal)
CPT/HCPCS: 36415; 82728; 83540; 83550; 83735

== ENCOUNTER 2023-02-24 07:49 | Outpatient (CLI) | payer BC, SELFPAY | END 2023-02-24 07:50 | disposition home or self-care (01) | LOC: ANHAUDIO 07:50 | PROVIDERS: PCP Family Medicine; Visit Provider Otolaryngology | DX: H65.492 Other chronic nonsuppurative otitis media, left ear (principal); J31.0 Chronic rhinitis; H90.A11 Conductive hearing loss, unilateral, right ear with restricted hearing on the contralateral side; H90.A32 Mixed conductive and sensorineural hearing loss, unilateral, left ear with restricted hearing on the contralateral side | CPT/HCPCS: 92557; 92567 ==

== ENCOUNTER 2023-05-29 07:06 | Outpatient (CLI) | payer BC, SELFPAY ==
[2023-05-29 08:09] LABS: Basophils Absolute Auto 0.1 K/mm3 (0.0-0.1); Eosinophils Absolute Auto 0.1 K/mm3 (0-0.3); Eosinophils Percent Auto 0.9 % (0-4.4); Hematocrit 44.7 % (37.0-47.0); Immature Granulocyte Absolute 0.03 K/mm3 (0.00-0.031); Immature Granulocyte Percent A 0.4 % (0-0.5); Lymphocytes Absolute Auto 2.11 K/mm3 (0.9-3.2); Lymphocytes Percent Auto 30.2 % (18.3-44.2); Mean Corpuscular HGB Conc 33.6 g/dl (32-36); Mean Corpuscular Hemoglobin 29.9 pg (26-34); Mean Platelet Volume 11.4 fl (7.4-10.4); Monocytes Absolute Auto 0.4 K/mm3 (0.1-0.6); Monocytes Percent Auto 5.9 % (2.6-8.5); Neutrophils Absolute Auto 4.3 K/mm3 (1.3-6.7); Neutrophils Percent Auto 61.6 % (45.5-73.1); Platelet Count Result 261 k/mm3 (150-375); Red Blood Count 5.02 M/mm3 (4.2-5.4)
[2023-05-29 08:20] LABS: Alanine Aminotransferase 19 U/L (6-35); Albumin Level 4.3 g/dL (3.5-5.1); Alkaline Phosphatase 79 U/L (38-126); Anion Gap 3 mmol/L (8-16); Aspartate Amino Transferase 23 U/L (14-36); Bilirubin,Total 0.6 mg/dL (0.2-1.3); Blood Urea Nitrogen 19 mg/dL (7-17); Carbon Dioxide 34 mmol/L (22-30); Chloride 104 mmol/L (98-107); Cholesterol 249 mg/dL (0-200); Estimated Glomerular Filt Rate > 60; Glucose 103 mg/dL (65-110); HDL Direct 48 mg/dL; Potassium 4.4 mmol/L (3.4-5.0); Sodium 141 mmol/L (137-145); Triglycerides 110 mg/dL (<150)
[2023-05-29 08:31] LABS: LDL Cholesterol Direct 163 mg/dL
[2023-05-29 09:10] LABS: Iron 124 ug/dL (37-170)
[2023-05-29 09:20] LABS: Percent Iron Saturation 32 % (20-50)
== END 2023-05-29 07:07 | disposition home or self-care (01) ==
PROVIDERS: PCP Family Medicine; Visit Provider Nurse Practitioner Family
DX: E61.1 Iron deficiency (principal); E78.5 Hyperlipidemia, unspecified; Z72.0 Tobacco use; Z13.29 Encounter for screening for other suspected endocrine disorder; E55.9 Vitamin D deficiency, unspecified; G25.81 Restless legs syndrome; G47.33 Obstructive sleep apnea (adult) (pediatric)
CPT/HCPCS: 36415; 80053; 80061; 82306; 82728; 83540; 83550; 84443; 85025

== ENCOUNTER → 2023-07-09 15:30 | Outpatient (CLI) | payer BC, SELFPAY ==
--- NOTE | ~2023-07-09 | MM_ITS ---
EXAMINATION: MM screening [facility] BI w christiana HISTORY: Screening mammogram TECHNIQUE: Craniocaudal and mediolateral oblique 3-D tomosynthesis images were obtained and synthetic 2-D images were generated. CAD analysis was submitted and interpreted. COMPARISON: 05/02/2022, 12/26/2019, 07/04/2019 BREAST PARENCHYMAL COMPOSITION: There are scattered areas of fibroglandular density. FINDINGS: No suspicious mass, calcification, or architectural distortion are identified in either volodymyr ast to suggest malignancy. There has been no suspicious interval change. IMPRESSION: 1. No mammographic evidence of malignancy. 2. Recommend routine screening mammography in one year. BI-RADS Category 1: Negative Reviewed, dictated and finalized at location A.
== END ==
PROVIDERS: PCP Nurse Practitioner Family; Visit Provider Nurse Practitioner Family
DX: Z12.31 Encounter for screening mammogram for malignant neoplasm of breast (principal)
CPT/HCPCS: 77063; 77067

== ENCOUNTER 2024-01-12 01:59 | Day surgery (SDC) | payer BC, SELFPAY ==
[2023-12-24 08:36] VITALS: BMI 24.6
--- NOTE | 2024-01-10 10:50 | PC.NURSE ---
Patient called regarding upcoming procedure. Reviewed preop instructions, appointment times, and procedure prep.
--- NOTE | 2024-01-11 15:05 | PM.HPGS ---
History of Present Illness History of Present Illness Consent: Risks, benefits, and alternatives have been discussed and questions answered. Patient agrees to proceed with procedure. Chief complaint: hx colon polyps Narrative: Yanet Stevens is a 58 year old female Referred for colon cancer screening. She has history of polyps having had several polyps removed in 2020 in [facility]. Review of Systems Review of Systems: All systems reviewed & are unremarkable except as noted in HPI and below PMFSH Past Medical History Medical History Abdominal pain Anxiety BMI 23.0-23.9, adult BMI 24.0-24.9, adult BMI 24.0-24.9, adult BMI 25.0-25.9,adult Chronic GERD COVID-19 Diverticulitis Epigastric abdominal pain Epigastric pain Eustachian tube disorder GERD (gastroesophageal reflux disease) LLQ pain LUQ pain RLQ abdominal pain Routine gynecological examination Stomach cramps Tobacco abuse URI (upper respiratory infection) Surgical History Surgical History H/O shoulder surgery H/O: hysterectomy left Family History Family History Father Cancer Mother Borderline hyperlipidemia Hypertension Sibling Fibromyalgia Cerebral palsy Son Genetic disorder Other Family history of lung cancer Social History Social History Social History: The patient lives with her his durable power of regulatory attorney for healthcare. The patient is a full code. The patient continues to smoke half a pack a cigarettes a day. She had 2 children but 1 son from a rare genetic disorder. Patient occasionally uses alcohol on weekends. She does not use any alcohol marijuana or illicit drugs. Smoking packs per day: 0.5 Smoking cigarettes per day: 10.0 Years smoked: 40 Smoking pack-years: 20.00 Smoking status: Current every day smoker Tobacco type: cigarettes Second hand tobacco smoke exposure: No Alcohol intake: never Substance use: never Substance use type: does not use Lack of Transportation: No Lack of Food: Never True Current Housing: I Have Housing Concerned About Future Housing: No Difficulty Paying Gas/Electric Bills: No Difficulty Paying for Meds: No Currently Unemployed: No Education: High School Diploma/GED Difficulty w/ Childcare or Family Care: No Living arrangements: with family Occupation/Education: occupation 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 Gender identity (if verbalized by the patient): Female Spiritual care concerns: No Meds Home Medications and Allergies Home Medications Medication Instructions Recorded Confirmed Type ropinirole 0.25 mg tablet 0.5 mg PO QHS #180 tabs 04/09/23 01/12/24 Rx citalopram 10 mg tablet 10 mg PO .QD #90 tabs 08/05/23 01/12/24 Rx ibuprofen 800 mg tablet 800 mg PO TID PRN pain and swellin 08/05/23 01/12/24 Rx #90 tabs azelastine 137 mcg (0.1 %) nasal 137 mcg (0.137 mL) intranasal Q12H 11/13/23 01/12/24 Rx spray aerosol PRN nasal congestion #30 mL cetirizine 10 mg tablet (Zyrtec) 10 mg PO PRN PRN Sinus Symptoms 12/24/23 01/12/24 History fluticasone propionate 50 2 spray intranasal PRN PRN Sinus 12/24/23 01/12/24 History mcg/actuation nasal Symptoms spray,suspension (Flonase Allergy Relief) Allergies Allergy/AdvReac Type Severity Reaction Status Date / Time ezetimibe [From Zetia] AdvReac muscle Verified 01/12/24 09:46 aches Dfedmgh-IFO-DiG Reductase AdvReac Elevated CK Verified 01/12/24 09:46 Inhibitor [Chucidz-Zjl-Bqv Reductase Inhibitor] Exam Resp: Auscultation: clear to auscultation bilaterally Cardio: Rate: regular rate Rhythm: regular rhythm GI: GI Palp: Yes Soft to palpation and No Tenderness to palpatio
[2024-01-12 09:48] VITALS: BP 116/69; PULSE 74; RESP 16; TEMP 36.4; O2SAT 98
--- NOTE | 2024-01-12 09:51 | WPDANESEPPF ---
Anes - Initial Pre Proc Eval Procedure: Operation Date: 01/12/24 11:00 Proposed Procedures p Colonoscopy - Gildardo Sarah MD Date/Time: 01/12/24 09:51 Surgeon: Gildardo Sarah MD Pre Op Diagnosis: hx colon polyps Patient Data Age: 58 Gender: F Height: 1.68 m Weight: 66.4 kg Last Vital Signs Temp 36.4 C L 01/12/24 09:48 Pulse 74 01/12/24 09:48 Resp 16 01/12/24 09:48 BP 116/69 01/12/24 09:48 Pulse Ox 98 01/12/24 09:48 O2 Del Method Room Air 01/12/24 09:48 Allergies Allergy/AdvReac Type Severity Reaction Status Date / Time ezetimibe [From Zetia] AdvReac muscle Verified 01/12/24 09:46 aches Kvkqcpd-OYA-HvF Reductase AdvReac Elevated CK Verified 01/12/24 09:46 Inhibitor [Umlavdp-Jzo-Xxp Reductase Inhibitor] Home Medications Medication Instructions Recorded Confirmed Type ropinirole 0.25 mg tablet 0.5 mg PO QHS #180 tabs 04/09/23 01/12/24 Rx citalopram 10 mg tablet 10 mg PO .QD #90 tabs 08/05/23 01/12/24 Rx ibuprofen 800 mg tablet 800 mg PO TID PRN pain and swellin 08/05/23 01/12/24 Rx #90 tabs azelastine 137 mcg (0.1 %) nasal 137 mcg (0.137 mL) intranasal Q12H 11/13/23 01/12/24 Rx spray aerosol PRN nasal congestion #30 mL cetirizine 10 mg tablet (Zyrtec) 10 mg PO PRN PRN Sinus Symptoms 12/24/23 01/12/24 History fluticasone propionate 50 2 spray intranasal PRN PRN Sinus 12/24/23 01/12/24 History mcg/actuation nasal Symptoms spray,suspension (Flonase Allergy Relief) Patient hx anesthesia problems: none Family hx anesthesia problems: none Results Review: All pre-operative results and documents have been reviewed as part of the pre-operative evaluation. [facility] Past Medical History Medical History Abdominal pain Anxiety BMI 23.0-23.9, adult BMI 24.0-24.9, adult BMI 24.0-24.9, adult BMI 25.0-25.9,adult Chronic GERD COVID-19 Diverticulitis Epigastric abdominal pain Epigastric pain Eustachian tube disorder GERD (gastroesophageal reflux disease) LLQ pain LUQ pain RLQ abdominal pain Routine gynecological examination Stomach cramps Tobacco abuse URI (upper respiratory infection) Surgical History Surgical History H/O shoulder surgery H/O: hysterectomy left Family History Family History Father Cancer Mother Borderline hyperlipidemia Hypertension Sibling Fibromyalgia Cerebral palsy Son Genetic disorder Other Family history of lung cancer Social History Social History Social History: The patient lives with her his durable power of securities attorney for healthcare. The patient is a full code. The patient continues to smoke half a pack a cigarettes a day. She had 2 children but 1 son from a rare genetic disorder. Patient occasionally uses alcohol on weekends. She does not use any alcohol marijuana or illicit drugs. Smoking packs per day: 0.5 Smoking cigarettes per day: 10.0 Years smoked: 40 Smoking pack-years: 20.00 Smoking status: Current every day smoker Tobacco type: cigarettes Second hand tobacco smoke exposure: No Alcohol intake: never Substance use: never Substance use type: does not use Lack of Transportation: No Lack of Food: Never True Current Housing: I Have Housing Concerned About Future Housing: No Difficulty Paying Gas/Electric Bills: No Difficulty Paying for Meds: No Currently Unemployed: No Education: High School Diploma/GED Difficulty w/ Childcare or Family Care: No Living arrangements: with family Occupation/Education: occupation 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
[2024-01-12] MEDS: LACTATED RINGERS 1,000 ML 150 ML IV CONT (10:00)
[2024-01-12 11:12] VITALS: BP 110/74; PULSE 72; RESP 20; O2SAT 100
[2024-01-12 11:22] VITALS: BP 133/84; PULSE 76; RESP 20; O2SAT 100
[2024-01-12 11:33] VITALS: BP 136/68; PULSE 74; RESP 20; O2SAT 100
== END 2024-01-12 11:38 | disposition home or self-care (01) ==
PROVIDERS: PCP Nurse Practitioner Family; Visit Provider Internal Medicine Gastroenterology
PROC: 0DJD8ZZ Inspection of Lower Intestinal Tract, Via Natural or Artificial Opening Endoscopic (ICD-10-PCS; CPT 45378; principal; 2024-01-12 11:00)
DX: Z12.11 Encounter for screening for malignant neoplasm of colon (principal); D12.5 Benign neoplasm of sigmoid colon; K63.5 Polyp of colon; K64.8 Other hemorrhoids; F17.210 Nicotine dependence, cigarettes, uncomplicated
CPT/HCPCS: 45385; 88305; J2704; J7120

== ENCOUNTER 2024-01-17 14:12 | Outpatient (CLI) | payer BC, SELFPAY ==
--- NOTE | ~2024-01-17 | XR_ITS ---
EXAMINATION: XR abdomen/kub 1V INDICATION: Severe lower abdominal pain TECHNIQUE: Supine views of the abdomen were obtained on 2 radiographs. COMPARISON: 10/21/2018 FINDINGS: The bowel gas pattern is unremarkable. No free intraperitoneal gas is identified. 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 The visualized lung bases are c lear. There is mild osteoarthritis of the hips. IMPRESSION: 1. No radiographic correlate for the patient's symptoms. Reviewed, dictated and finalized at location B. LIFE [employer] GAME PROTECTOR
== END 2024-01-17 14:13 | disposition home or self-care (01) ==
LOC: ANHIMG 14:15
PROVIDERS: PCP Nurse Practitioner Family; Visit Provider Internal Medicine Gastroenterology
DX: R10.84 Generalized abdominal pain (principal)
CPT/HCPCS: 74018

== ENCOUNTER 2024-01-19 14:51 | Outpatient (CLI) | payer BC, SELFPAY ==
--- NOTE | ~2024-01-19 | CT_ITS ---
EXAMINATION: CT abdomen pelvis w con INDICATION: Right lower quadrant pain, history of ovarian vein thrombosis TECHNIQUE: Computed tomographic images of the abdomen and pelvis were obtained after the administrati on of 100 cc of Omnipaque 350 intravenous contrast. The dose-length product (DLP) was 313.05 mGy-cm. Automated exposure control and iterative reconstruction technique were employed. COMPARISON: 03/12/2022 FINDINGS: Minimal dependent atelectasis is present in the lung bases. The heart size is normal. A sta ble 4 mm nodule of the right middle lobe is consistent with old granulomatous disease. Cysts of the l iver measure up to 3 mm in the right hepatic lobe. The spleen, pancreas, gallbladder, and right adren al gland are normal. A stable 9 mm mass of the left adrenal gland likely represents an adenoma. Hypoa ttenuating lesions in the kidneys, measuring up to 4 mm on the right, are too small to characterize b ut likely represent cysts. No pathologically enlarged abdominal or pelvic lymph nodes are identified. No free intraperitoneal gas or evidence of bowel obstruction. There are changes of hysterectomy and bilateral oophorectomy. A surgical staple line is noted in the small bowel. There is moderate lumbar spondylosis. IMPRESSION: 1. No CT correlate for the patient's symptoms. Reviewed, dictated and finalized at location B. [employer]
[2024-01-19 15:17] LABS: Estimated Glomerular Filt Rate > 60
[2024-01-19 16:12] LABS: Basophils Absolute Auto 0.1 K/mm3 (0.0-0.1); Eosinophils Percent Auto 0.7 % (0-4.4); Hematocrit 40.3 % (37.0-47.0); Immature Granulocyte Absolute 0.02 K/mm3 (0.00-0.031); Immature Granulocyte Percent A 0.3 % (0-0.5); Lymphocytes Absolute Auto 2.33 K/mm3 (0.9-3.2); Lymphocytes Percent Auto 38.2 % (18.3-44.2); Mean Corpuscular HGB Conc 32.3 g/dl (32-36); Mean Corpuscular Hemoglobin 29.3 pg (26-34); Mean Corpuscular Volume 90.8 fl (80-100); Mean Platelet Volume 11.3 fl (7.4-10.4); Monocytes Absolute Auto 0.4 K/mm3 (0.1-0.6); Monocytes Percent Auto 6.2 % (2.6-8.5); Neutrophils Absolute Auto 3.3 K/mm3 (1.3-6.7); Neutrophils Percent Auto 53.6 % (45.5-73.1); Platelet Count Result 233 k/mm3 (150-375); Red Blood Count 4.44 M/mm3 (4.2-5.4); Red Cell Distribution Width 13.1 % (11.5-14.5); White Blood Count 6.1 K/mm3 (4.5-10.0)
[2024-01-19 16:52] LABS: Anion Gap 2 mmol/L (8-16); Blood Urea Nitrogen 11 mg/dL (7-17); Calcium 8.6 mg/dL (8.4-10.2); Carbon Dioxide 31 mmol/L (22-30); Chloride 101 mmol/L (98-107); Estimated Glomerular Filt Rate > 60; Glucose 84 mg/dL (65-110); Sodium 134 mmol/L (137-145)
== END 2024-01-19 14:52 | disposition home or self-care (01) ==
LOC: ANHIMG 14:55
PROVIDERS: PCP Family Medicine; Visit Provider Physician Assistant Medical
DX: R10.31 Right lower quadrant pain (principal); I82.890 Acute embolism and thrombosis of other specified veins; R31.9 Hematuria, unspecified
CPT/HCPCS: 74177; 80048; 85025; Q9967

== ENCOUNTER 2024-03-25 07:05 | Outpatient (CLI) | payer BC, SELFPAY ==
[2024-03-25 08:09] LABS: Alanine Aminotransferase 17 U/L (6-35); Albumin Level 4.3 g/dL (3.5-5.1); Alkaline Phosphatase 75 U/L (38-126); Anion Gap 4 mmol/L (4-12); Aspartate Amino Transferase 20 U/L (14-36); Bilirubin,Total 0.8 mg/dL (0.2-1.3); Blood Urea Nitrogen 18 mg/dL (7-17); Calcium 9.4 mg/dL (8.4-10.2); Carbon Dioxide 30 mmol/L (22-30); Chloride 106 mmol/L (98-107); Cholesterol 235 mg/dL (0-200); Estimated Glomerular Filt Rate > 60; Glucose 96 mg/dL (65-110); HDL Direct 48 mg/dL; Potassium 4.2 mmol/L (3.4-5.0); Sodium 140 mmol/L (137-145); Triglycerides 122 mg/dL (<150)
[2024-03-25 08:34] LABS: LDL Cholesterol Direct 149 mg/dL
== END 2024-03-25 07:06 | disposition home or self-care (01) ==
LOC: ANHLAB 07:08
PROVIDERS: PCP Family Medicine; Referring Provider Physician Assistant Medical; Visit Provider Nurse Practitioner Adult Health
DX: R31.9 Hematuria, unspecified (principal); R10.31 Right lower quadrant pain; E78.5 Hyperlipidemia, unspecified; Z00.00 Encounter for general adult medical examination without abnormal findings; Z13.29 Encounter for screening for other suspected endocrine disorder
CPT/HCPCS: 36415; 80053; 80061; 84443; 87086

== ENCOUNTER 2024-09-25 10:25 | Outpatient (CLI) | payer BC, SELFPAY ==
--- NOTE | ~2024-09-25 | XR_ITS ---
XR hand LT min 3V Ordering provider: Johnna Thornton, PAC History: . M79.2 - Neuralgia and neuritis, unspecified ATTN 4TH DIGIT . Comparison: None. FINDINGS: BONES: No acute fracture or dislocation. Possible fusion between the scaphoid bone and the trapezium bone is noted. JOINT SPACES: Narrowing of the proximal and distal interphalangeal joints. Osteoarthritic changes of the first carpometacarpal joint. SOFT TISSUES: Unremarkable. IMPRESSION: No acute osseous abnormality left hand. Fusion of the scaphoid bone and the trapezium bone. Polyarticular osteoarthritic changes. Reviewed, dictated and finalized at location A. IT BREEDER
== END 2024-09-25 10:26 | disposition home or self-care (01) ==
LOC: ANHIMG 10:28
PROVIDERS: PCP Family Medicine; Visit Provider Physician Assistant Medical
DX: M79.2 Neuralgia and neuritis, unspecified (principal); M19.042 Primary osteoarthritis, left hand
CPT/HCPCS: 73130

== ENCOUNTER 2024-10-05 13:14 | Outpatient (CLI) | payer BC, SELFPAY ==
--- NOTE | ~2024-10-05 | MM_ITS ---
EXAMINATION: MM screening [facility] BI w christiana HISTORY: Screening mammogram TECHNIQUE: Craniocaudal and mediolateral oblique 3-D tomosynthesis images were obtained and synthetic 2-D images were generated. CAD analysis was submitted and interpreted. COMPARISON: 07/09/2023, 05/02/2022, 12/26/2019 BREAST PARENCHYMAL COMPOSITION:Not Dense. The breasts are almost entirely fatty FINDINGS: No suspicious mass, calcification, or architectural distortion are identified in either volodymyr ast to suggest malignancy. There has been no suspicious interval change. IMPRESSION: No mammographic evidence of malignancy. Recommend routine screening mammography in one year. BI-RADS Category 1: Negative Reviewed, dictated and finalized at location . ER PROFESSIONAL
== END 2024-10-05 13:15 | disposition home or self-care (01) ==
LOC: MICIMG 13:15
PROVIDERS: PCP Family Medicine; Visit Provider Nurse Practitioner Adult Health
DX: Z12.31 Encounter for screening mammogram for malignant neoplasm of breast (principal)
CPT/HCPCS: 77063; 77067

== ENCOUNTER 2025-04-04 08:29 | Outpatient (CLI) | payer BC, SELFPAY ==
--- NOTE | ~2025-04-04 | CT_ITS ---
CT Scan of the Chest without Contrast: Clinical Indication: Lung cancer screening, nicotine dependence Technique: Contiguous sections were acquired throughout the chest without intravenous contrast. Dose reduction technique was used on this scan by utilizing automated exposure control and iterative recon struction technique. The dose-length product (DLP) was 67.98 mGy-cm. Findings: There is no evidence of any significant mediastinal, hilar or axillary lymphadenopathy. The mediastin al soft tissues appear normal. There is no evidence of pleural or pericardial effusion. 5 mm inferior right middle lobe nodule present (axial image 85). No other nodule seen. Images through the upper abdomen reveal no abnormalities. Impression: Lung RADS 2: Benign appearance. 12 month follow-up screening CT advised. Reviewed, dictated and finalized at location . Impression: Lung RADS 2: Benign appearance. 12 month follow-up screening CT advised.
== END 2025-04-04 08:30 | disposition home or self-care (01) ==
LOC: MICIMG 08:30
PROVIDERS: PCP Family Medicine; Visit Provider Physician Assistant Medical
DX: Z12.2 Encounter for screening for malignant neoplasm of respiratory organs (principal); F17.210 Nicotine dependence, cigarettes, uncomplicated
CPT/HCPCS: 71271

== ENCOUNTER 2025-04-04 08:49 | Outpatient (CLI) | payer BC, SELFPAY ==
[2025-04-04 09:09] LABS: Basophils Absolute Auto 0.1 K/mm3 (0.0-0.1); Basophils Percent Auto 0.7 % (0.2-1.2); Eosinophils Absolute Auto 0.2 K/mm3 (0-0.3); Eosinophils Percent Auto 2.2 % (0-4.4); Hemoglobin 14.7 g/dL (12.0-15.0); Immature Granulocyte Absolute 0.02 K/mm3 (0.00-0.031); Immature Granulocyte Percent A 0.3 % (0-0.5); Lymphocytes Absolute Auto 2.26 K/mm3 (0.9-3.2); Lymphocytes Percent Auto 33.1 % (18.3-44.2); Mean Corpuscular HGB Conc 32.7 g/dl (32-36); Mean Corpuscular Hemoglobin 29.2 pg (26-34); Mean Corpuscular Volume 89.3 fl (80-100); Mean Platelet Volume 10.7 fl (7.4-10.4); Monocytes Absolute Auto 0.4 K/mm3 (0.1-0.6); Monocytes Percent Auto 6.2 % (2.6-8.5); Neutrophils Absolute Auto 3.9 K/mm3 (1.3-6.7); Neutrophils Percent Auto 57.5 % (45.5-73.1); Platelet Count Result 249 k/mm3 (150-375); Red Blood Count 5.04 M/mm3 (4.2-5.4); Red Cell Distribution Width 12.8 % (11.5-14.5); White Blood Count 6.8 K/mm3 (4.5-10.0)
--- OUTSIDE RECORDS SUMMARY | 2025-04-04 09:34 | XMS_ITS | Clinical Summary ---
Author Organization [facility] [employer] Address [address] [place] [address] Care Team Providers Care Silk Screen Printer Helper Name Role Phone Unavailable Primary Care Provider Unavailabl e Source Comments [facility],non-owned Affiliates and Associated Physician Practices is amultiple site organization consisting of ambulatory clinics and hospital sitesin [place], [place], [place] and [place]. This disclosure is being madepursuant to the Care Everywhere program and may not contain all information available regarding this patient. Last updated 18.[facility] [employer] Social History Tobacco Use Types Packs/Day Years Used Date Smoking Tobacco: Never Assessed Comments Unknown Sex and Gender Information Value Date Recorded Sex Assigned at Not on file Legal Sex Female 5:38 PM SALESPERSON FURNITURE Gender Identity Not on file Sexual Orientation Not on file Plan of Treatment Health Maintenance Due Date Last Done Comments COLOGUARD (AGES 45-75) - COL ON CA SCREENING 1963 COLON MONITORING 1963 COLONOSCOPY - COLON CA SCREENING 1963 CT COLONOGRAPHY - COLON CA SCREENING 1963 Colorectal Cancer Screening 1963 FIT - COLON CA SCREENING 1963 FLEX SIG - COLON CA SCREENING 1963 LIPID TESTING 1963 MAMMOGRAM 1963 PAP SMEAR 1963 HIV SCREENING 1978 HEPATITIS C SCREENING 12/24/1981 DTAP/TDAP/TD VACCINES (1 - Tdap) 1982 PNEUMOCOCCAL VACCINE 50+ (1 of 1 - PCV) 2013 ZOSTER VACCINE (1 of 2) 2013 COVID-19 VACCINE ( - 2023-2 5 season) 2024 DEPRESSION SCREENING 11/15/2024 INFLUENZA VACCINE (Season Ended) 2025 Respiratory Syncytial Virus (RSV) Vaccine Pt: or over 60 yrs (1 - 1-dose 75+ series) 2038 HEPATITIS B VACCINE Aged Out No longe r eligible based on patient's age to complete this topic HIB VACCINE Aged Out No longer eligi ble based on patient's age to complete this topic HPV VACCINE Aged Out No longer eligi ble based on patient's age to complete this topic MENINGOCOCCAL (Group B) VACC INE SHARED DECISION-MAKING Aged Out No longer eligibl e based on patient's age to complete this topic MENINGOCOCCAL GROUPS A/C/Y/W VACCINE Aged Out No longer eligible b ased on patient's age to complete this topic Insurance BC/BLUE [facility] [place] SELF PAY NO INSURANCE Member Subscriber Plan / Payer (Ef fective for All Dates) Name:Prabhu Stevens Member ID:Not on file Relation to Subscriber:Not on file Name:PRABHU STEVENS Subscriber ID:Not on file Address: [address] [place], [place] [address] Payer ID:Not on file Group ID:Not on file Type:Self Pay Address: [place], [place] BC[employer]/BLUE [employer] [place] SELF PAY NO INSURANCE Member Subscriber Plan / Payer (Ef fective for All Dates) Name:Prabhu Stevens Member ID:Not on file Relation to Subscriber:Not on file Name:PRABHU STEVENS Subscriber ID:Not on file Address: [address] [place], [place] [address] Payer ID:Not on file Group ID:Not on file Type:Self Pay Address: [place], [place] BCBS/BLUE [employer] [place] SELF PAY NO INSURANCE Member Subscriber Plan / Payer (Ef fective for All Dates) Name:Prabhu Stevens Member ID:Not on file Relation to Subscriber:Not on file Name:PRABHU STEVENS Subscriber ID:Not on file Address: [address] [place] [id number] Payer ID:Not on file Group ID:Not on file Type:Self Pay Address: [place], [place]
--- OUTSIDE RECORDS SUMMARY | 2025-04-04 09:34 | XMS_ITS | Clinical Summary ---
Author Organization [facility] Address [address] [place] [address] Care Team Providers Care Correctional Facility Nurse Name Role Phone Garrett Cuello MD Primary Care Provider [phone] Allergies No known active allergies Medications cyclobenzaprine (FLEXERIL) 10 mg tabletIndication s:Muscle Spasm Take 10 mg by mouth 3 (three) times a day as needed. 7 Active escitalopram (LEXAPRO) 10 mg tabletIndication s:Antidepresant Take 10 mg by mouth every morning. Active fluticasone (FLONASE) 50 mcg/actuation nasal spray Administer 2 sprays into each nostril daily as needed. 7 Active VITAMIN D2 50,000 unit capsule 8 Active loratadine (CLARITIN) 10 mg tablet 8 Active meloxicam (MOBIC) 15 mg tabletIndication s:Osteoarthritis Take 1 tablet (15 mg total) by mouth daily. 30 tablet 2 8 Active Additional Information Patient not taking.Reported on 02/02/2024 citalopram (CeleXA) 10 mg tablet Take 1 tablet (10 mg total) by mouth daily Active ezetimibe (ZETIA) 10 mg tablet Take 1 tablet (10 mg total) by mouth nightly Active nitrofurantoin monohydrate (MACROBID) 100 mg capsule Take 1 capsule (100 mg total) by mouth every 12 (twelve) hours 4 Active omeprazole (PriLOSEC) 40 mg capsule Take 1 capsule (40 mg total) by mouth daily as needed Active sucralfate (CARAFATE) 1 gram tablet Take 1 tablet (1 g total) by mouth every 6 (six) hours as needed Active Active Problems Problem Noted Date Diagnosed Date 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 Discussed findings with the patient. She has had a hysterectomy and bilateral oophorectomy confirmed by CT. We discussed ovarian vein thrombosis can not be diagnosed on an abdominal x-ray and likely not the cause of her symptoms. Recommend follow-up with her GI physician. Cervical cancer 02/08/2018 Surgical History Surgery Date Site/Laterality Comments HYSTERECTOMY TONSILLECTOMY APPENDECTOMY SHOULDER ARTHROSCOPY Medical History Medical History Date Comments Arthritis Cervical and lef t Shoulder Family History Medical History Relation Name Comments Cancer Father Relation Name Status Comments Father Social History Tobacco Use Types Packs/Day Years Used Date Smoking Tobacco: Every Day Cigarettes Smokeless Tobacco: Never Tobacco Cessation:Ready to Q uit: Not Asked; Counseling Given: Not Answered Alcohol Use Standard Drinks/Week Comments Yes 0 (1 standard drink = 0.6 oz pur e alcohol) Socially Comments Unknown Sex and Gender Information Value Date Recorded Sex Assigned at Not on file Legal Sex Female 11:59 AM ACTUARY CLERK Gender Identity Not on file Sexual Orientation Not on file Obstetrics History Last Filed Vital Signs Vital Sign Reading Time Taken Comments Blood Pressure 133/84 02/02/2024 2:18 PM CDT Pulse 77 02/02/2024 2:18 PM CDT Temperature 36.8 C (98.3 F) 11/25/2017 4:34 PM ACTUARY CLERK Respiratory Rate 18 11/25/2017 5:35 PM ACTUARY CLERK Oxygen Saturation 95% 11/25/2017 5:35 PM ACTUARY CLERK Inhaled Oxygen Concentration - - Weight 68 kg (150 lb) 02/02/2024 2:18 PM CDT Height 167.6 cm (5' 6 ) 02/02/2024 2:18 PM CDT Body Mass Index 24.21 02/02/2024 2:18 PM CDT Plan of Treatment Health Maintenance Due Date Last Done Comments Colon Cancer Screening-Colonoscopy 1963 Depression Screening 1963 Hepatitis C Screening 1963 DTaP/Tdap/Td Vaccine (1 - Tdap) 1974 Hepatitis B Screening 1981 Regular Well Visit/Exam 18-64 1981 Pneumococcal vaccine <65 (1 of 2 - PCV) 1982 Zoster Vaccine (1 of 2) 2013 Breast Cancer Screening-Mammogram 07/04/2020 07/04/2019, 06/08/2018, 06/08/2018, Additional history exists Covid-19 Vaccine (3 - 2023-2 5 season) 2024 06/22/2021, 05/25/2021 Influenza Vaccine (Season Ended) 2025 Procedures Procedure Name Priority Date/Time Associated Diagnosis Comments SCREENING MAMMOGRAM Routine 04/02/2017 5 :51 PM CDT from Last 3 Months or Most Recently Relevant to Health Maintenance Results * Screening Mammogram (04/02/2017 5:51 PM CDT) Anatomical Region Laterality Modality Breast N/A Mammography 04/02/2017 5:51 PM CDT Narrative 04/02/2017 5:51 PM CDT SCREENING MAMM W FIORELLA BI Acc#: [id number] DATE OF EXAM: Apr 02 2017 EXAMINATION: Digital screening mammogram with tomosynthesis. HISTORY: Breast cancer screening PRIOR: 08/31/2012 and 01/11/2009 DENSITY: Scattered fibroglandular densities FINDINGS: Little change is noted. No new dominant mass, architectural distortion, nipple retraction, skin thickening, or suspicious calcifications are seen. Benign axillary lymph nodes are stable. IMPRESSION: BIRADS Category 2: Benign finding(s). Digital technology was employed plus computer-aided detection software (R2) was utilized in interpretation of these images. This facility utilizes a reminder system to notify patients of yearly mammograms. Electronically signed by: Sudarshan Herrera M.D. Interpreting Physician: SUDARSHAN HERRERA M.D. Read on: Apr 02 2017 12:51P Transcribed by: [facility] On: Apr 02 2017 12:48P Approved Electronically by: SUDARSHAN HERRERA M.D. on: Apr 02 2017 12:48P Ordering DR: REFERRAL SELF Attending DR: MYRNA GARBER Attending: MYRNA GARBER Requesting: SELF, REFERRAL Requesting Fax: -- Attending Attending ID: [id number] Requesting ID: [id number] Report To 1 ID: [id number] Report To 1 Name: MYRNA GARBER Report To 1 FAX: [phone] NextGen Order #: Procedure Note Miscellaneous, Not In File / Provider, MD Tong - 04/11/2017 SCREENING MAMM W FIORELLA BI Acc#: [id number] DATE OF EXAM: Apr 02 2017 EXAMINATION: Digital screening mammogram with tomosynthesis. HISTORY: Breast cancer screening PRIOR: 08/31/2012 and 01/11/2009 DENSITY: Scattered fibroglandular densities FINDINGS: Little change is noted. No new dominant mass, architectural distortion, nipple retraction, skin thickening, or suspicious calcifications are seen. Benign axillary lymph nodes are stable. IMPRESSION: BIRADS Category 2: Benign finding(s). Digital technology was employed plus computer-aided detection software (R2) was utilized in interpretation of these images. This facility utilizes a reminder system to notify patients of yearly mammograms. Electronically signed by: Sudarshan Herrera M.D. Interpreting Physician: SUDARSHAN HERRERA M.D. Read on: Apr 02 2017 12:51P Transcribed by: [facility] On: Apr 02 2017 12:48P Approved Electronically by: SUDARSHAN HERRERA M.D. on: Apr 02 2017 12:48P Ordering DR: OZ SELF Attending DR: MYRNA GARBER Attending: MYRNA GARBER Requesting: SELF, REFERRAL Requesting Fax: -- Attending Attending ID: [id number] Requesting ID: [id number] Report To 1 ID: [id number] Report To 1 Name: MYRNA GARBER Report To 1 FAX: [phone] NextGen Order #: us Not In File Miscellaneous IMG MAMMO PROCEDURES F inal Result from Last 3 Months or Most Recently Relevant to Health Maintenance Insurance [facility] ACCESS Member Subscriber Plan / Payer (Ef fective 2022-Present) Name:Yanet Stevens Member ID:[id number] Relation to Subscriber:Spouse Name:Kashif Stevens Subscriber ID:[id number] Date of :1966 Address: [address] [place] [address] Payer ID:[id number] (NAIC) Type:[facility] [place] [address] Care Teams Correctional Facility Nurse Relationship Specialty Start Date End Date Garrett Cuello MD [address] [place] [address] PCP - General Family Medicine 01/26/24
--- OUTSIDE RECORDS SUMMARY | 2025-04-04 09:34 | XMS_ITS | Referral Summary ---
Author Organization [facility] Address [address] [place] [address] Care Team Providers Care Ventilation Mechanic Name Role Phone Garrett Cuello MD Primary Care Provider [phone] Allergies No known active allergies Medications cyclobenzaprine [...] with her GI physician. Cervical cancer 02/08/2018 Social History Tobacco Use Types Packs/Day Years [...] on file Legal Sex Female 11:59 AM PACK OUT OPERATOR Gender Identity Not on file Sexual Orientation Not on file Last Filed Vital Signs Vital Sign Reading Time Taken Comments Blood Pressure 133/84 02/02/2024 2:18 PM CDT Pulse 77 02/02/2024 2:18 PM CDT Temperature 36.8 C (98.3 F) 11/25/2017 4:34 PM PACK OUT OPERATOR Respiratory Rate 18 11/25/2017 5:35 PM PACK OUT OPERATOR Oxygen Saturation 95% 11/25/2017 5:35 PM PACK OUT OPERATOR Inhaled Oxygen Concentration - - Weight 68 kg (150 lb) 02/02/2024 2:18 PM CDT Height 167.6 cm (5' 6 ) 02/02/2024 2:18 PM CDT Body Mass Index 24.21 02/02/2024 2:18 PM CDT Plan of Treatment Not on file Procedures Procedure Name Priority Date/Time Associated Diagnosis Comments SCREENING MAMMOGRAM Routine 04/02/2017 5 :51 PM CDT from Last 3 Months or Most Recently Relevant to Health Maintenance Results * Screening Mammogram (04/02/2017 5:51 PM CDT) Anatomical Region Laterality Modality Breast N/A Mammography 04/02/2017 5:51 PM CDT Narrative 04/02/2017 5:51 PM CDT SCREENING MAMM W FIORELLA BI Acc#: [id number] DATE OF EXAM: Apr 02 2017 EXAMINATION: [...] on: Apr 02 2017 12:51P Transcribed by: [facility] On: Apr 02 2017 12:48P Approved Electronically by: SUDARSHAN HERRERA M.D. on: Apr 02 2017 12:48P Ordering DR: REFERRAL SELF Attending DR: MYRNA GARBER Attending: MYRNA GARBER Requesting: SELF, REFERRAL Requesting Fax: -- Attending Attending ID: [id number] Requesting ID: [id number] Report To 1 ID: [id number] Report To 1 Name: MYRNA GARBER Report To 1 FAX: [phone] NextGen Order #: Procedure Note Miscellaneous, Not In File / Provider, MD Tong - 04/11/2017 SCREENING MAMM W FIORELLA BI Acc#: [id number] DATE OF EXAM: Apr 02 2017 EXAMINATION: [...] on: Apr 02 2017 12:51P Transcribed by: [facility] On: Apr 02 2017 12:48P Approved Electronically by: SUDARSHAN HERRERA M.D. on: Apr 02 2017 12:48P Ordering DR: OZ SELF Attending DR: MYRNA GARBER Attending: MYRNA GARBER Requesting: SELF, REFERRAL Requesting Fax: -- Attending Attending ID: [id number] Requesting ID: [id number] Report To 1 ID: [id number] Report To 1 Name: MYRNA GARBER Report To 1 FAX: [phone] NextGen Order #: us Not In File Miscellaneous IMG MAMMO PROCEDURES F inal Result from Last 3 Months or Most Recently Relevant to Health Maintenance Insurance ACCESS Care Teams Ventilation Mechanic Relationship Specialty Start Date End Date Garrett Cuello MD [address] [place], [place] [id number] PCP - General Family Medicine 01/26/24
--- OUTSIDE RECORDS SUMMARY | 2025-04-04 09:34 | XMS_ITS | Clinical Summary ---
Author Organization [facility] Address [address] [place] [address] Phone Care Team Providers Care Emergency Service Worker Name Role Phone Garrett Cuello MD Primary Care Provider [phone] Allergies Active Allergy Reactions Criticality Noted Date Comments Statins Other (see Comments) 01/14/2021 MUSCLE BREAKDOWN Medications escitalopram (LEXAPRO) 10 MG Tablet Take 10 mg by mouth daily. Active citalopram (CeleXA) 10 MG Tablet nightly. 09/29/2020 Active ezetimibe (ZETIA) 10 MG Tablet Take 10 mg by mouth nightly. Active omeprazole (PriLOSEC) 40 MG CAPSULE DELAYED RELEASE Take 40 mg by mouth daily as needed. Active sucralfate (CARAFATE) 1 GM Tablet Take 1 g by mouth every 6 hours as needed. Active Active Problems Problem Noted Date Diagnosed Date Cervical cancer Family History Medical History Relation Name Comments Cerebral Palsy Brother 1 Hypertension Brother 2 Cancer Father Lung Cancer Father High Cholesterol Mother Hypertension Mother Relation Name Status Comments Brother 1 Brother 2 Father Mother Alive Social History Tobacco Use Types Packs/Day Years Used Date Smoking Tobacco: Every Day Cigarettes 0.5 25 Smokeless Tobacco: Never Tobacco Cessation:Ready to Q uit: Yes; Counseling Given: Yes Alcohol Use Standard Drinks/Week Comments Yes 0 (1 standard drink = 0.6 oz pur e alcohol) rare Comments No Sex and Gender Information Value Date Recorded Sex Assigned at Not on file Legal Sex Female 12:15 AM CDT Gender Identity Not on file Sexual Orientation Not on file Last Filed Vital Signs Vital Sign Reading Time Taken Comments Blood Pressure 116/83 08/11/2022 8:31 AM CDT Pulse 87 08/11/2022 8:31 AM CDT Temperature 36 C (96.8 F) 08/11/2022 8:31 AM CDT Respiratory Rate 13 08/11/2022 8:31 AM CDT Oxygen Saturation 100% 08/11/2022 8:31 AM CDT Inhaled Oxygen Concentration - - Weight 68 kg (150 lb) 08/11/2022 8:31 AM CDT Height 167.6 cm (5' 6 ) 08/11/2022 8:31 AM CDT Body Mass Index 24.21 08/11/2022 8:31 AM CDT Plan of Treatment Health Maintenance Due Date Last Done Comments Hepatitis C Virus (HCV) Screening 1963 TdaP Immunization 1963 Pneumococcal Immunization (5 0+ years) (1 of 2 - PCV) 1982 Zoster Immunization (1 of 2) 1982 Cologuard 2013 Immunochemical Fecal Occult Blood 03/05/2018 03/05/2017 SARS-COV-2 Immunization (3 - Moderna risk series) 07/20/2021 06/22/2021, 05/25/2021 Colonoscopy 08/11/2023 08/11/2022, 01/31/2021, 12/03/2015 Colorectal Cancer Screening 08/11/2023 Influenza Immunization (#1) 2024 Respiratory Syncytial Virus (RSV) Immunization (Adult) (1 - 1-dose 75+ series) 2038 08/11/2022, 01/31/2021, 12/03/2015 Mammogram Discontinued 07/04/2019, 06/08/2018, 10/28/2015 Hepatitis B Immunization Aged Out No longer eligible based on patient's age to complete this topic Meningococcal Immunization (ACWY) Aged Out No longer eligible based on patient's age to complete this topic Rotavirus Immunization Aged Out No lo nger eligible based on patient's age to complete this topic Procedures Procedure Name Priority Date/Time Associated Diagnosis Comments SHERRELL SCREENING BILATERAL DIGITAL W CAD W FIORELLA Routine 07/04/2019 1:00 PM CDT Encounter for screening mammogram for malignant neoplasm of breast STOOL, OCCULT BLOOD, DIAGNOSTIC, VIA GUAIAC STAT 03/05/2017 5:02 PM CDT from Last 3 Months or Most Recently Relevant to Health Maintenance Results * SHERRELL SCREENING BILATERAL DIGITAL W CAD W FIORELLA (07/04/2019 1:00 PM CDT) Anatomical Region Laterality Modality breast Bilateral Mammography 07/04/2019 12:3 4 PM CDT Narrative 07/04/2019 4:55 PM CDT - SHERRELL SCREENING BILATERAL DIGITAL W CAD W FIORELLA BILATERAL DIGITAL SCREENING MAMMOGRAM 3D/2D WITH CAD WITH MEDIOLATERAL OBLIQUE CRANIOCAUDAL: 07/04/2019 The study was acquired using digital technology and interpreted from soft copy. Current study was also evaluated with Vaccinogen version 7.2. CLINICAL: Routine screening. Patient has no complaints. Personal history of cervical cancer. No family history of breast cancer. COMPARISONS: Comparison is made to [facility]2018[facility]. BREAST TISSUE:There are scattered fibroglandular densities in both breasts. FINDINGS: No significant masses, calcifications, or other findings are seen in either breast. There has been no significant interval change. IMPRESSION: BI-RAD 1 NEGATIVE There is no mammographic evidence of malignancy. A 1 year screening mammogram is recommended. The patient has been or will be contacted. The patient will be entered into a reminder system with a target due date of 1 year for her next screening exam. Electronically signed by: Jacob Mon M.D. bs/dave:07/04/2019 14:13:44 Recording Studio Set Up Worker: Hanna LAIRD(Brooklynn)(Arelis), [facility] letter sent: Normal Exam Reading location: [facility] BI-RADS: 1 Negative Procedure Note Jacob Mon MD - 07/04/2019 - SHERRELL SCREENING BILATERAL DIGITAL W CAD W FIORELLA BILATERAL DIGITAL SCREENING MAMMOGRAM 3D/2D WITH CAD WITH MEDIOLATERAL OBLIQUE CRANIOCAUDAL: 07/04/2019 The study was acquired using digital technology and interpreted from soft copy. Current study was also evaluated with ICAD version 7.2. CLINICAL: Routine screening. Patient has no complaints. Personal history of cervical cancer. No family history of breast cancer. COMPARISONS: Comparison is made to exams dated: 06/08/2018, 10/28/2015 [facility], and 08/31/2012 [facility]. BREAST TISSUE:There are scattered fibroglandular densities in both breasts. FINDINGS: No significant masses, calcifications, or other findings are seen in either breast. There has been no significant interval change. IMPRESSION: BI-RAD 1 NEGATIVE There is no mammographic evidence of malignancy. A 1 year screening mammogram is recommended. The patient has been or will be contacted. The patient will be entered into a reminder system with a target due date of 1 year for her next screening exam. Electronically signed by: Jacob Mon M.D. bs/dave:07/04/2019 14:13:44 Recording Studio Set Up Worker: Hanna LAIRD(Brooklynn)(Arelis), [facility] letter sent: Normal Exam Reading location: [facility] BI-RADS: 1 Negative us Rupinder Bazan APRN, CNP IMG MAMMO ORDERABLES Neeru l Result * Stool Occult Blood - Diagnostic (03/05/2017 5:02 PM CDT) OCCULT BLOOD DIAG, GI BLEED Negative Negative 03/05/2017 6:03 PM CDT [facility] Stool specimen (specimen) Non-Phlebotomy Collection / Unknown 03/05/2017 5:02 PM CDT 03/05/2017 5:23 PM CDT us Mychal Pierre APRN, CNP BODY FLUIDS & STOOLS OR DERABLES Final Result [facility] [address] [place] [address] from Last 3 Months or Most Recently Relevant to Health Maintenance Insurance [facility] Care Teams Emergency Service Worker Relationship Specialty Start Date End Date Garrett Cuello MD [address] [place] [address] PCP - General Family Medicine 12/26/19
[2025-04-04 10:01] LABS: Alanine Aminotransferase 20 U/L (6-35); Albumin Level 4.3 g/dL (3.5-5.1); Alkaline Phosphatase 95 U/L (38-126); Anion Gap 9 mmol/L (4-12); Aspartate Amino Transferase 28 U/L (14-36); Bilirubin,Total 0.5 mg/dL (0.2-1.3); Blood Urea Nitrogen 17 mg/dL (7-17); Carbon Dioxide 26 mmol/L (22-30); Chloride 103 mmol/L (98-107); Cholesterol 258 mg/dL (0-200); Estimated Glomerular Filt Rate > 60; Glucose 97 mg/dL (65-110); HDL Direct 56 mg/dL; Potassium 4.3 mmol/L (3.4-5.0); Sodium 138 mmol/L (137-145); Triglycerides 153 mg/dL (<150)
[2025-04-04 10:13] LABS: LDL Cholesterol Direct 138 mg/dL
== END 2025-04-04 08:50 | disposition home or self-care (01) ==
LOC: ANHLAB 08:50
PROVIDERS: PCP Family Medicine; Visit Provider Physician Assistant Medical
DX: E78.2 Mixed hyperlipidemia (principal); E87.1 Hypo-osmolality and hyponatremia; K21.9 Gastro-esophageal reflux disease without esophagitis; E61.1 Iron deficiency
CPT/HCPCS: 36415; 80053; 80061; 85025

== ENCOUNTER 2025-04-18 10:48 | Outpatient (CLI) | payer BC, SELFPAY ==
--- NOTE | ~2025-04-18 | DEXA_ITS ---
Bone Density Report Name: PRABHU TRAYLOR Age: 59 Sex: Female Ethnicity: White Date of : 1965 Indication: postmenopausal; screening for osteoporosis; hysterectomy; Referring Provider: Johnna Thornton Study: Bone densitometry was performed. Exam Date: April 18, 2025 Accession number: [id number] Bone Density: Region BMD T-score Z-score Classification AP Spine(L1-L4) 0.807 -2.2 -0.7 Osteopenia Femoral Neck (Left) 0.629 -2.0 -0.6 Osteopenia Total Hip (Left) 0.658 -2.3 -1.3 Osteopenia Femoral Neck (Right) 0.575 -2.5 -1.1 Osteoporosis Total Hip (Right) 0.635 -2.5 -1.5 Osteoporosis Total Hip Mean 0.646 -2.4 -1.4 Osteopenia World Health Organization criteria for BMD impression classify patients as: Normal (T-score at or above -1.0), Osteopenia (T-score between -1.0 and -2.5), or Osteoporosis (T-score at or below -2.5). 10-year Fracture Risk: FRAX not reported because: Some T-score for Spine Total or Hip Total or Femoral Neck at or below -2.5 Clinical Information Provided by Patient: Smokes Has used the following medications: Vitamin D, Calcium Has the following medical conditions: Hysterectomy Patient maximum height was 65 Menopause Age: 36 No regular weight bearing exercise Does not regularly consume dairy products Drinks caffeinated beverages Onset of menses at age 10 Number of children 3 Impression: The patient has osteoporosis, based on the Right Total Hip T-score. The patient has risk factors, including: smoking. Discussion: INCREASED RISK OF FRACTURE. BONE DENSITY IS UNDESIRABLY LOW AT ONE OR MORE SKELETAL SITES, CONSISTENT WITH POSTMENOPAUSAL OSTEOPOROSIS. This patient's lowest T-score meets the World Health Organization's (WHO) criteria for osteoporosis at one or more sites (T-score -2.5 or below). In untreated patients, the risk of osteoporotic fracture increases approximately two-fold for each 1.0 SD decrease in T-score. Low bone density is not the only risk factor for fracture; also consider factors such as patient's age, frailty or poor health, risk of falling, risk of injury, previous osteoporotic fracture, family history of osteoporosis, cigarette smoking, low body weight, etc. Not everyone with low bone mineral density has osteoporosis; osteomalacia and other metabolic bone disorders should also be considered. Patients who have osteoporosis should be evaluated for specific diseases and conditions (secondary causes) that may cause or contribute to bone loss. The [place] [employer] (AACE) and National Osteoporosis Foundation (NOF) recommend pharmacologic intervention for all postmenopausal women whose T-score is in this range. The patient should follow a healthful lifestyle (good nutrition with adequate calcium and vitamin D, and appropriate weight-bearing exercise). Follow-Up: Consider a repeat BMD and Vertebral Fracture Assessment (VFA) exam in 2 years or sooner if medically necessary, to reassess this patient's status. Reported by: EDUARDA on 04/18/2025 11:04:00 AM. Reviewed, dictated and finalized at location A.
== END 2025-04-18 10:49 | disposition home or self-care (01) ==
LOC: MICIMG 10:49
PROVIDERS: PCP Family Medicine; Visit Provider Physician Assistant Medical
DX: M81.0 Age-related osteoporosis without current pathological fracture (principal); M85.89 Other specified disorders of bone density and structure, multiple sites; Z78.0 Asymptomatic menopausal state; Z13.820 Encounter for screening for osteoporosis
CPT/HCPCS: 77080

== ENCOUNTER 2025-05-09 07:51 | Outpatient (CLI) | payer BC, SELFPAY ==
[2025-05-09 08:48] LABS: Cholesterol 119 mg/dL (0-200); HDL Direct 53 mg/dL; Triglycerides 130 mg/dL (<150)
[2025-05-09 08:58] LABS: LDL Cholesterol Direct 37 mg/dL
== END 2025-05-09 07:52 | disposition home or self-care (01) ==
LOC: ANHLAB 07:51
PROVIDERS: PCP Family Medicine; Visit Provider Nurse Practitioner Adult Health
DX: E78.2 Mixed hyperlipidemia (principal)
CPT/HCPCS: 36415; 80061